=== PATIENT | male | born 1985 | race Caucasian/White ===

== ENCOUNTER 2023-06-04 11:18 | Emergency (ER) | payer OTHER, SELFPAY ==
[2023-06-04] VITALS (14 sets, daily range): BP systolic 138–164; BP diastolic 94–120; PULSE 65–77; RESP 16; TEMP 36.4; O2SAT 95–98; BMI 46.1
--- NOTE | 2023-06-04 11:45 | ED.GENADULT ---
HPI - General Adult General Time Seen by Provider: 11:45 Date Seen: 06/04/23 Chief complaint: Arrhythmia/Palpitations Stated complaint: From echo Time Seen by Provider: 06/04/23 11:39 History of Present Illness HPI narrative: This is a pleasant 38-year-old male with a history of hypertension (on metoprolol 50 mg daily) insomnia) and recent palpitations who was sent here to the ER today from the outpatient ECHO suite. He apparently had seen his primary care provider, Dr. Etienne on May 10 for a blood pressure check and also mentioned that his smart watch was indicating he was having some rapid heart rates. Up to the 150s. He was referred for outpatient echo as part of that workup. He notes that throughout the month of May he has had occasional palpitations. It sounds like almost every day he gets occasional skipped beats. There have been several days where he has had more irregular heartbeats and heart rates up to the 150s. He requires them on his Apple watch. He has heart rates above 100 on 05/05, 05/19, 05/22, 05/23, and again this morning. Some of these rhythm strips due to seem to be consistent with AFib. Others have a lot of artifact. At least 1 of them appears to be sinus with artifact. Other than having the palpitations. No other symptoms. No chest pain. No fainting. No dizziness. No shortness of breath. He does not have any known history of heart valve disease. No history of coronary artery disease. No history of stroke. No history of CHF. No history of diabetes. He does have hypertension. He had been on metoprolol over the long-term. This month he has increased the dose from 50 mg up to 100 mg. No tobacco or alcohol consumption. No other stimulants or weight loss drugs. He endorses longstanding trouble with insomnia. He does not think he still snores. He has never been diagnosed with sleep apnea but actually has a sleep study scheduled for 1-2 weeks from now. When he came in for the echo today the echocardiography for noted that his heart rhythm appeared very rapid up to the 150s and irregular. We do not have a tracing from the echo clinic today but it sounds like he may have been in a tachyarrhythmia, (possibly AFib? ). He is otherwise feeling fine. The instructional technology coordinator made a phone call to [facility]. That business reporting developer recommended that they transfer the patient here to the ER at [facility] for more rapid evaluation and control of his heart rate Related Data Home Medications Medication Instructions Recorded Confirmed aspirin 81 mg tablet,delayed 81 mg PO QDAY 05/10/23 06/04/23 release (Adult Aspirin Regimen) Previous Rx's Medication Instructions Recorded metoprolol succinate 50 mg 75 mg (1.5 x 50 mg) PO QDAY #135 05/10/23 tablet,extended release 24 hr tabs trazodone 50 mg tablet 50 mg PO QHS PRN insomnia #90 tabs 05/10/23 diltiazem HCl 120 mg 120 mg PO DAILY #30 caps 06/04/23 capsule,extended release 24 hr (Cardizem CD) Allergies Allergy/AdvReac Type Severity Reaction Status Date / Time No Known Drug Allergies Allergy Verified 05/10/23 12:50 PFSH PFSH Social History Smoking Status: Current some day smoker What tobacco products do you use: cigars How often do you have a drink containing alcohol: 2-4 times a month AUDIT-C Alcohol total score: 2 Non-prescribed substance use: other Non-prescribed substance use details: gummies occas, last 2 weeks ago Exam Narrative: Exam Narrative: Constitutional: Appears well-developed and well-nourished. Alert. Conversant. Detailed historian. Non toxic. HENT: Head: Atraumatic. Nose: Nose normal. Mouth/Throat: Oral mucosa is clear and moist. no trismus. Pharynx normal. Tonsils symmetric. No tonsillar enlargement, erythema, or exudate. Eyes: Conjunctivae normal. EOM normal. Pupils equal, round, and reactive to light. No scleral icterus. Neck: Normal range of motion. Neck supple. No tracheal deviation present. No JVD Cardiovascular: Normal rate, regular rhythm. Occasional extra beats on the monitor that appeared to be PACs. He does have sinus on the monitor. No gallop. No friction rub. No murmur heard. Symmetric radial and PT artery pulses Pulmonary/Chest: Effort normal. No stridor. No respiratory distress. No wheezes. No rales. No rhonchi . No tenderness. Abdominal: Soft. Bowel sounds normal. No distension. No mass. No tenderness. No rebound. No guarding. Musculoskeletal: RUE: Normal range of motion. No tenderness. No deformity LUE: Normal range of motion. No tenderness. No deformity RLE: Normal range of motion. No edema. No tenderness. No deformity LLE: Normal range of motion. No edema. No tenderness. No deformity Neurological: Alert and oriented to person, place, and time. Normal strength. CN II-VII intact. No sensory deficit. GCS eye subscore is 4. GCS verbal subscore is 5. GCS motor subscore is 6. Normal coordination Skin: Skin is warm and dry. No rash noted. No pallor. Normal capillary refill. Psychiatric: Normal mood. Normal affect. Const: Vital Signs, click to edit/add: Vital Signs - 24 hr 06/04/23 11:29 06/04/23 12:00 06/04/23 12:47 Temperature 97.5 F L Pulse Rate 73 Pulse Rate [Left P ulse Oximeter] 77 Respiratory Rate 16 Blood Pressure Blood Pressure [Ri ght Upper Arm] 164/120 H 156/108 H Pulse Oximetry 98 95 Oxygen Delivery Me thod Room Air 06/04/23 13:00 06/04/23 13:02 06/04/23 13:03 Temperature Pulse Rate 70 67 74 Pulse Rate [Left P ulse Oximeter] Respiratory Rate Blood Pressure 147/95 H Blood Pressure [Ri ght Upper Arm] Pulse Oximetry 95 97 97 Oxygen Delivery Me thod 06/04/23 13:30 06/04/23 13:32 06/04/23 13:33 Temperature Pulse Rate 68 71 72 Pulse Rate [Left P ulse Oximeter] Respiratory Rate Blood Pressure 150/101 H Blood Pressure [Ri ght Upper Arm] Pulse Oximetry 98 96 97 [facility] 06/04/23 14:00 06/04/23 14:02 06/04/23 14:30 Temperature Pulse Rate 74 67 72 Pulse Rate [Left P ulse Oximeter] Respiratory Rate Blood Pressure 138/94 H Blood Pressure [Ri ght Upper Arm] Pulse Oximetry 97 97 96 Oxygen Delivery Me thod 06/04/23 14:31 06/04/23 14:32 Temperature Pulse Rate 65 70 Pulse Rate [Left P ulse Oximeter] Respiratory Rate Blood Pressure 146/108 H Blood Pressure [Ri ght Upper Arm] Pulse Oximetry 97 97 Oxygen Delivery Me od Course Vital Signs Vital signs: Initial Vital Signs Temperature 97.5 F L 06/04/23 11:29 Temperature Source Temporal Artery Scan 06/04/23 11:29 Pulse Rate 77 06/04/23 11:29 Pulse Rhythm Regular 06/04/23 11:29 Respiratory Rate 16 06/04/23 11:29 Blood Pressure 164/120 H 06/04/23 11:29 Blood Pressure Mean 134 H 06/04/23 11:29 Blood Pressure Position Supine 06/04/23 11:29 Pulse Oximetry 98 06/04/23 11:29 Oxygen Delivery Method Room Air 06/04/23 11:29 Vital Signs Temperature 97.5 F L 06/04/23 11:29 Pulse Rate 77 06/04/23 11:29 Respiratory Rate 16 06/04/23 11:29 Blood Pressure 164/120 H 06/04/23 11:29 Pulse Oximetry 98 06/04/23 11:29 Oxygen Delivery Method Room Air 06/04/23 11:29 Temperature 97.5 F L 06/04/23 11:29 Pulse Rate 70 06/04/23 14:32 Respiratory Rate 16 06/04/23 11:29 Blood Pressure 146/108 H 06/04/23 14:31 Pulse Oximetry 97 06/04/23 14:32 Oxygen Delivery Method Room Air 06/04/23 13:33 Medical Decision Making MDM Narrative Medical decision making narrative: This patent presents for evaluation of palpitations, and elevated heart rate. He has had episodes of palpitations off and on for years but has had several distinct episodes this month that appeared to be atrial fibrillation on his Apple watch. He was in the hospital today for a planned outpatient echo as part of the workup through his primary care provider. He was found to have signs of AFib with RVR on the echo so was referred here to the ER. By the time he arrived here he had already spontaneously converted back to normal sinus rhythm. Monitored here in the ER for couple of hours with noting a couple of occasional PACs but no recurrent runs of atrial fibrillation or other arrhythmia. I doubt acute coronary syndrome, thyroid issues, PE, dissection, drug ingestion, acute electrolyte imbalance, etc. Labs and CXR look ok. Repeat EKG confirms sinus.. Asymptomatic after spontaneous conversion to sinus now and would not hospitalize. Discussed with patient and the patient is in agreement. Discuss with [facility]. He is already on metoprolol (long-term for blood pressure, recently increasing doses because of the AF). Discussed with Cardiology. They recommend reducing dose of metoprolol down to 50 mg per day. They would also recommend addition of Cardizem CD 1 120 mg daily with a plan for dual treatment with beta-rosa maria and calcium channel rosa maria. Should see cardiology for consideration of oral rhythm control vs watchful waiting. Follow cardiology clinic will call him on Wednesday to arrange an outpatient follow-up. If he did not receive a call from them by Wednesday he will call [facility] to arrange is on follow-up. Chads Vasc score is 1. Discussed with cardiology. That would be moderate low risk. Stroke prophylaxis could be considered but is not mandatory. Discussed with the patient. 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 This when we feel the risk of bleeding from injury would outweigh the benefit a stroke prophylaxis will hold off on anticoagulation for now. Precautions for return to the ER reviewed. Lab Data Labs: Lab Results 06/04/23 Range/Units 11:58 WBC 8.28 (4.50-11.00) K/uL RBC 5.27 (4.30-5.90) m/uL Hgb 15.7 (13.5-17.5) gm/dL Hct 46.8 (37.0-53.0) % MCV 89 (80-100) fL MCH 30 (26-34) pg MCHC 34 (32-36) gm/dL RDW Coeff of Shady 12.5 (11.5-15.5) % Plt Count 246 (140-440) K/uL Neut % (Auto) 67.8 (42.0-72.0) % Lymph % (Auto) 24.0 (20-44) % Ross % (Auto) 7.2 (0.0-11.0) % Eos % (Auto) 0.6 (0.0-7.0) % Baso % (Auto) 0.2 (0.0-3.0) % Neut # (Auto) 5.60 (1.7-7.0) K/uL Lymph # (Auto) 1.99 (0.90-2.90) K/uL Ross # (Auto) 0.60 (0.00-0.90) K/UL Eos # (Auto) 0.05 (0.00-0.50) K/uL Baso # (Auto) 0.02 (0.00-0.30) K/uL Abs Immat Gran (auto) 0.02 (0.00-0.30) K/uL Imm/Tot Granulo (auto) 0.2 % Sodium 140 (135-149) mmol/L Potassium 4.5 (3.6-5.1) mmol/L Chloride 105 (96-114) mmol/L Carbon Dioxide 26 (20-32) mmol/L Anion Gap 9 (7-15) mEq/L BUN 13 (5-24) mg/dL Creatinine 0.8 (0.5-1.5) mg/dL Estimated Creat Clear 137.42 Estimated GFR 116 ml/min Glucose 100 (60-115) mg/dL Calcium 9.4 (8.4-10.6) mg/dL Troponin I < 0.01 L (0.01-0.04) ng/mL TSH 1.820 (0.270-4.200) uIU/mL ECG Data Attestation: I personally reviewed and interpreted this ECG as follows: Interpretation: Normal sinus rhythm rate 80 TN 162 QRS axis normal axis. No pathologic Q-waves. ST segment/T wave: No acute ST segment elevation or depression. No U-waves. QTc: 403. He had a previous EKG from 02/16/2023 that also showed normal sinus rhythm. EKG 2. Normal sinus rhythm rate 75. Marked sinus arrhythmia TN 162 QRS axis normal axis. No pathologic Q-waves ST segment/T wave: No acute ischemia. No ST segment elevation. QTc: For O2 Discharge Plan Discharge Clinical Impression: AF (paroxysmal atrial fibrillation) Patient Disposition: Home, Self-Care Condition: Stable Instructions: A-fib (Atrial Fibrillation) (ED) Additional Instructions: As we discussed, return to the ER right away if you have more episodes of AFib were especially heart rate higher than 150 that lasts more than 1 hour. Also come back right away if you develop chest pain, trouble breathing, fainting spells, or if you have any concerns. The business reporting developer recommends that you reduce your dose of metoprolol down to 50 mg per day and add a 2nd medication (Cardizem) to keep your heart under control. You should receive a phone call from [facility] by Wednesday to arrange an outpatient appointment. If you do not receive a call from them, call them at [phone] to schedule an appointment with the business reporting developer to recheck for her atrial fibrillation. Prescriptions: New diltiazem HCl [Cardizem CD] 120 mg capsule,extended release 24hr 120 mg PO DAILY Qty: 30 2RF No Action aspirin [Adult Aspirin Regimen] 81 mg tablet,delayed release (DR/EC) 81 mg PO QDAY trazodone 50 mg tablet 50 mg PO QHS PRN (Reason: insomnia) Qty: 90 4RF metoprolol succinate 50 mg tablet extended release 24 hr 75 mg PO QDAY Qty: 135 1RF Follow Up/Referrals: Rafal Conde MD [Primary Care Provider] - Stand Alone Forms: [employer] Info Instructions
[2023-06-04 12:08] LABS: Basophils Absolute Auto 0.02 K/uL (0.00-0.30); Basophils Percent Auto 0.2 % (0.0-3.0); Eosinophils Absolute Auto 0.05 K/uL (0.00-0.50); Eosinophils Percent Auto 0.6 % (0.0-7.0); Hematocrit 46.8 % (37.0-53.0); Hemoglobin* 15.7 gm/dL (13.5-17.5); Immature Granulocytes Abs Auto 0.02 K/uL (0.00-0.30); Immature Granulocytes Pct Auto 0.2 %; Lymphocytes Absolute Auto 1.99 K/uL (0.90-2.90); Mean Corpuscular HGB Conc 34 gm/dL (32-36); Mean Corpuscular Hemoglobin 30 pg (26-34); Mean Corpuscular Volume 89 fL (80-100); Monocytes Percent Auto 7.2 % (0.0-11.0); Neutrophils Percent Auto 67.8 % (42.0-72.0); Platelet Count* 246 K/uL (140-440); RDW Coefficient of Variation % 12.5 % (11.5-15.5); Red Blood Count 5.27 m/uL (4.30-5.90); White Blood Count* 8.28 K/uL (4.50-11.00)
[2023-06-04 12:11] LABS: Slide Review Reflex No
[2023-06-04 12:30] LABS: Chloride* 105 mmol/L (96-114); Potassium* 4.5 mmol/L (3.6-5.1); Sodium* 140 mmol/L (135-149)
[2023-06-04 12:33] LABS: Anion Gap 9 mEq/L (7-15); Blood Urea Nitrogen* 13 mg/dL (5-24); Calcium* 9.4 mg/dL (8.4-10.6); Carbon Dioxide* 26 mmol/L (20-32); Creatinine* 0.8 mg/dL (0.5-1.5); Est. Creatinine Clearance* 137.42; Estimated Glomerular Filt Rate 116 ml/min; Glucose* 100 mg/dL (60-115)
[2023-06-04 12:45] LABS: Troponin I* < 0.01 ng/mL (0.01-0.04)
== END 2023-06-04 14:48 | disposition home or self-care (01) ==
PROVIDERS: Emergency Provider Emergency Medicine; PCP Family Medicine
DX: I48.0 Paroxysmal atrial fibrillation (principal)
CPT/HCPCS: 36415; 80048; 84443; 84484; 85025; 93005; 93306; 99283; 99284; 99285

== ENCOUNTER 2023-06-06 14:02 | Emergency (ER) | payer OTHER, SELFPAY ==
[2023-06-06 14:05] VITALS: BP 132/92; PULSE 75; RESP 16; TEMP 36.4; O2SAT 97; BMI 46.1
--- NOTE | 2023-06-06 14:46 | ED_ITS ---
HPI - Arrhythmia/Palpitations General Time Seen by Provider: 14:12 Date Seen: 06/06/23 Chief Complaint: Arrhythmia/Palpitations Stated Complaint: Heart has been going in and out of A Fib Time Seen by Provider: 06/06/23 14:12 Source: patient, RN notes reviewed and old records reviewed Mode of arrival: ambulatory Limitations: no limitations History of Present Illness HPI narrative: This patient is a 38-year-old gentleman coming in with about 1 hour episode prior to arrival of rapid fast heart rate. He does show me some of the EKG tracing that he got off his I watch. If it does appear to be consistent with an irregularly irregular rhythm, a rate anywhere from 120 to 150s that is captured. He does have occasional PVC, couple couplets and there is one 4 beat of VT. He states he has a significant sense of anxiety with this, even yesterday when he had really no symptoms of the palpitations or fast heart rate, felt the fight or flight type sensation. He was in the ER on June 04, had come over from outpatient echo in atrial fibrillation with RVR but converted on his own just prior to being seen. Did check in his echo is not back yet for the formal reading. Did review with him that I would not be surprised if Cardiology would want an echo when he is in sinus rhythm, reviewed the limitations of the echo when someone is in AFib with RVR. He did start 50 mg of metoprolol with 120 mg of Cardizem on Wednesday as requested by Cardiology, Cardiology was consulted via phone. He is not feeling any shortness of breath no chest pain no symptoms except the fast heart rate in the anxiety when this happens. He is scheduled to see Cardiology this next week, is scheduled to get a sleep study. He does not believe he snores but understands the rationale for getting this checked in is more than willing to do it. He was hoping to be able to get an EKG to capture this. He recently were 24 hour Holter monitor which reportedly did not show any evidence of arrhythmia per his report. He is wondering if there is something that he could potentially take for anxiety and tell he can see Cardiology. He admits he just wants this to go away. complaint: atrial fibrillation Duration: intermittent Related Data Home Medications Medication Instructions Recorded Confirmed aspirin 81 mg tablet,delayed 81 mg PO QDAY 05/10/23 06/06/23 release (Adult Aspirin Regimen) Previous Rx's Medication Instructions Recorded metoprolol succinate 50 mg 75 mg (1.5 x 50 mg) PO QDAY #135 05/10/23 tablet,extended release 24 hr tabs trazodone 50 mg tablet 50 mg PO QHS PRN insomnia #90 tabs 05/10/23 diltiazem HCl 120 mg 120 mg PO DAILY #30 caps 06/04/23 capsule,extended release 24 hr (Cardizem CD) hydroxyzine HCl 50 mg tablet 50 mg PO TID PRN #15 tabs 06/06/23 lorazepam 0.5 mg tablet (Ativan) 0.5 mg PO TID PRN #10 tabs 06/06/23 Allergies Allergy/AdvReac Type Severity Reaction Status Date / Time No Known Drug Allergies Allergy Verified 06/06/23 14:09 Review of Systems Status of ROS: Reports: 6 or more systems reviewed and unremarkable except as noted in History and below PFSH [facility] Social History Smoking Status: Current some day smoker What tobacco products do you use: cigars How often do you have a drink containing alcohol: 2-4 times a month AUDIT-C Alcohol total score: 2 Non-prescribed substance use: denies use and other Non-prescribed substance use details: gummies occas, last 2 weeks ago Exam Const: Vital Signs, click to edit/add: Vital Signs - 24 hr 06/06/23 14:05 Temperature 97.6 F Pulse Rate [Left P ulse Oximeter] 75 Respiratory Rate 16 Blood Pressure [Ri ght Upper Arm] 132/92 H Pulse Oximetry 97 Oxygen Delivery Me thod Room Air Very pleasant 38-year-old gentleman whom is alert interactive no apparent distress. He is overweight. Lungs are clear with good air entry, no wheezing or crackles. CV regular rate and rhythm no murmur. On investigator operator and no arrhythmia noted. Documenting provider has reviewed patient's vital signs: yes Course Course Hospital Course: Spent about 30 minutes talking to this patient, reviewing his history. We did talk about the importance of following through with the sleep study, sleep apnea can be very significant for patients with arrhythmias like this. He was in sinus rhythm the whole time I was there with him, did not go into atrial fibri llation. Did look to see if his echo report was in but it is not. Discussed anxiety, I a very infrequently give out medicines for this but he may actually be someone I would consider this for. We discussed both Vistaril an Ativan. I would tend to favor him using Vistaril 1st, will give him a small reserve of Ativan if he is feeling overly anxious. We did discuss the risk benefit profile of Ativan. He understands it is an addictive drugs, can be considered mood altering and certainly should not drive or operate machinery while on this. He has had thyroid testing recently done, do not feel clinically that he has any evidence of any congestive heart failure, do not feel that further labs are done. He has not had any chest pain with this at any time, has had normal prior troponins done. Vital Signs Vital signs: Initial Vital Signs Temperature 97.6 F 06/06/23 14:05 Temperature Source Temporal Artery Scan 06/06/23 14:05 Pulse Rate 75 06/06/23 14:05 Respiratory Rate 16 06/06/23 14:05 Blood Pressure 132/92 H 06/06/23 14:05 Blood Pressure Mean 105 06/06/23 14:05 Blood Pressure Position Sitting 06/06/23 14:05 Pulse Oximetry 97 06/06/23 14:05 Oxygen Delivery Method Room Air 06/06/23 14:05 Vital Signs Temperature 97.6 F 06/06/23 14:05 Pulse Rate 75 06/06/23 14:05 Respiratory Rate 16 06/06/23 14:05 Blood Pressure 132/92 H 06/06/23 14:05 Pulse Oximetry 97 06/06/23 14:05 Oxygen Delivery Method Room Air 06/06/23 14:05 Temperature 97.6 F 06/06/23 14:05 Pulse Rate 75 06/06/23 14:05 Respiratory Rate 16 06/06/23 14:05 Blood Pressure 132/92 H 06/06/23 14:05 Pulse Oximetry 97 06/06/23 14:05 Oxygen Delivery Method Room Air 06/06/23 14:05 MDM - Arrhythmia/Palpitations ECG Data Attestation: I personally reviewed and interpreted this ECG as follows: (Sinus rhythm with frequent PACs. Rate about 75. QT corrected 411 milliseconds.) ECG interpretation date: 06/06/23 ECG interpretation time: 14:30 Critical Care Time Critical Care Time Critical Care Time: No Discharge Plan Discharge Clinical Impression: Paroxysmal atrial fibrillation Patient Disposition: Home, Self-Care Condition: Stable Instructions: A-fib (Atrial Fibrillation) (ED) Additional Instructions: Stay on the Cardizem and metoprolol that you were advised to take on WednesdayJune 04. Need to keep the cardiology appointment that you have this next week as well as complete the sleep study. For anxiety associated with this, am giving prescriptions for Vistaril and Ativan. Use as prescribed, would recommend trying Vistaril 1st an Ativan for more severe anxiety. No that Ativan is potentially addictive, considered mood altering and would not recommend drivi ng or operating machinery while on this. Activity Level: Activity as Tolerated Prescriptions: New hydroxyzine HCl 50 mg tablet 50 mg PO TID PRNQty: 15 0RF lorazepam [Ativan] 0.5 mg tablet 0.5 mg PO TID PRNQty: 10 0RF No Action aspirin [Adult Aspirin Regimen] 81 mg tablet,delayed release (DR/EC) 81 mg PO QDAY diltiazem HCl [Cardizem CD] 120 mg capsule,extended release 24hr 120 mg PO DAILY Qty: 30 2RF trazodone 50 mg tablet 50 mg PO QHS PRN (Reason: insomnia) Qty: 90 4RF metoprolol succinate 50 mg tablet extended release 24 hr 75 mg PO QDAY Qty: 135 1RF Follow Up/Referrals: Rafal Conde MD [Primary Care Provider] - Stand Alone Forms: [employer] Info Instructions
== END 2023-06-06 15:30 | disposition home or self-care (01) ==
PROVIDERS: Emergency Provider Family Medicine; PCP Family Medicine
DX: I48.0 Paroxysmal atrial fibrillation (principal)
CPT/HCPCS: 93005; 94761; 99283; 99284

== ENCOUNTER 2023-08-10 17:31 | Day surgery (SDC) | payer OTHER, SELFPAY ==
[2023-08-10] VITALS (19 sets, daily range): BP systolic 139–142; BP diastolic 89–117; PULSE 86–106; RESP 16–22; TEMP 37.4–38.2; O2SAT 94–98; BMI 46.1
--- NOTE | 2023-08-10 18:07 | CRLHL7_ITS ---
For Patients: As a result of the Century Cures Act, medical imaging exams and procedure reports are released immediately into your electronic medical record. You may view this report before your referring provider. If you have questions, please contact your health care provider. INDICATION: Fever common gallstones. TECHNIQUE: Ultrasound abdomen limited. Sonographic images of the right upper quadrant were obtained using pradhan-scale and color Doppler images. COMPARISON: Same day CT abdomen pelvis. FINDINGS: Liver: Normal in size. Increased echogenicity of the hepatic echotexture compatible with diffuse hepatic steatosis. No suspicious masses. No intrahepatic biliary dilatation. Portal vein is patent with blood flow toward the liver. Gallbladder: Cholelithiasis. Gallbladder wall measures 5 mm, increased in wall thickness. No pericholecystic fluid. No sonographic Garcia`s sign. Common bile duct: 6 mm. Pancreas: Limited visualization. Right kidney: Normal in size. Normal echotexture and cortex. No suspicious masses, stones, or hydronephrosis. IMPRESSION: Cholelithiasis and mild thickening of the gallbladder wall, indeterminate for acute cholecystitis. Dictated by Rahul Wiley MD @ 08/10/2023 9:43:36 PM (Electronically Signed)
--- NOTE | 2023-08-10 18:30 | ED_ITS ---
HPI - General Adult General Date Seen: 08/10/23 <Jolene Guzamn MD - Last Filed: 08/12/23 12:38> Chief complaint: Fever <Jolene Guzman MD - Last Filed: 08/12/23 12:38> Stated complaint: Gallblader issues-high WBC, bili in urine, fever <Jolene Guzman MD - Last Filed: 08/12/23 12:38> Time Seen by Provider: 08/10/23 17:34 <Jolene Guzman MD - Last Filed: 08/12/23 12:38> Source: patient <Jolene Guzman MD - Last Filed: 08/12/23 12:38> Mode of arrival: ambulatory <Jolene Guzman MD - Last Filed: 08/12/23 12:38> Limitations: no limitations <Jolene Guzman MD - Last Filed: 08/12/23 12:38> History of Present Illness HPI narrative: Patient is a 38-year-old male who is sent here from urgent care for evaluation of fever and abdominal pain. He tells me that he has has a long history of intermittent upper abdominal pain which he is always presumed was related to his gallbladder, but it has always gone away after a couple of hours and so he has never pursued any kind of evaluation for it. He says he ate barbecue on Wednesday and then at 4:00 a.m. on Wednesday woke up with pretty severe upper abdominal pain, typical for him. However, this time it did not go way and he had pain steadily through noon on Wednesday. Since then, the pain has completely resolved, but he has developed a fever up to 101.5 at home. He has not noted any yellowing of his skin, has not had any vomiting although he has been a little bit nauseated. No urinary symptoms, no upper respiratory symptoms. No prior abdominal surgeries. He does not smoke, drinks about a drink a week, has a history of AFib but is not anticoagulated, denies other significant medical history. He is overweight and was scheduled to have a sleep study recently that had to be rescheduled because of availability of the staff performing the test. In urgent care he was found have white blood cell count [id number]. He had an EKG which showed sinus tachycardia with a heart rate of 111. Blood pressure was reportedly good. Had a UA which showed bilirubin, but did not have LFTs. <Jolene Guzman MD - Last Filed: 08/12/23 12:38> Related Data Home medications: Home Medications Medication Instructions Recorded Confirmed aspirin 81 mg tablet,delayed 81 mg PO QDAY 05/10/23 08/11/23 release (Adult Aspirin Regimen) Previous Rx's Medication Instructions Recorded metoprolol succinate 50 mg 75 mg (1.5 x 50 mg) PO QDAY #135 05/10/23 tablet,extended release 24 hr tabs diltiazem HCl 120 mg 120 mg PO DAILY #30 caps 06/04/23 capsule,extended release 24 hr (Cardizem CD) amoxicillin 875 mg-potassium 1 tab PO BID #10 tabs 08/12/23 clavulanate 125 mg tablet hydrocodone 5 mg-acetaminophen 325 1 tab PO Q6H PRN pain #25 tabs 08/12/23 mg tablet <Jolene Guzman MD - Last Filed: 08/12/23 12:38> Allergies/adverse reactions: Allergies Allergy/AdvReac Type Severity Reaction Status Date / Time No Known Drug Allergies Allergy Verified 08/10/23 15:51 <Jolene Guzman MD - Last Filed: 08/12/23 12:38> Review of Systems Status of ROS: Reports: 10 or more systems reviewed and unremarkable except as noted in History and below <Jolene Guzman MD - Last Filed: 08/12/23 12:38> [facility] Medical History: Medical History (Updated 08/10/23 @ 23:10 by Ricky Ramesh MD) Insomnia ?G47.00 - Insomnia, unspecified (ICD-10) Paroxysmal atrial fibrillation with rapid ventricular response ?I48.0 - Paroxysmal atrial fibrillation (ICD-10) Family history of thyroid disease ?Z83.49 - Family history of other endocrine, nutritional and metabolic diseases (ICD-10) Family history of ASCVD ?Z82.49 - Family history of ischemic heart disease and other diseases of the circulatory system (ICD-10) Obesity ?E66.9 - Obesity, unspecified (ICD-10) Palpitation ?R00.2 - Palpitations (ICD-10) Hypertension ?I10 - Essential (primary) hypertension (ICD-10) <Jolene Guzman MD - Last Filed: 08/12/23 12:38> Surgical History: Surgical History (Updated 08/12/23 @ 07:02 by Valeriano Mendes MD) S/P laparoscopic cholecystectomy ?Z90.49 - Acquired absence of other specified parts of digestive tract (ICD- 10) <Jolene Guzman MD - Last Filed: 08/12/23 12:38> Social History: Social History What is your current living situation?: I presently have a place to live Problems where you live: no known problems Problems where you live details: n/a In the past 12 months, utilities in danger of being shut off: no In past 12 months, lack of transportation kept you from medical appts, meetings, work, or getting things needed for daily living: no In the past 12 mos, have been you worried that your food would run out before you had money to buy more?: never true In the past 12 mos, the food you bought just didn't last and you didn't have money to buy more?: never true Highest level of school completed/degree received: some college, no degree Smoking Status: Current some day smoker What tobacco products do you use: cigars How often do you have a drink containing alcohol: 2-4 times a month AUDIT-C Alcohol total score: 2 Non-prescribed substance use: other Non-prescribed substance use details: THC gummies Caffeine: Yes How often does anyone, including family, friends and others, physically hurt you : never How often does anyone, including family, friends and others, insult or talk down to you: never How often does anyone, including family, friends and others, threaten you with harm: never How often does anyone, including family, friends and others, scream or curse at you: never service: No <Jolene Guzman MD - Last Filed: 08/12/23 12:38> Exam Narrative: Exam Narrative: Vital signs as noted above. In general, an alert, nontoxic male. Looks comfortable. Overweight. Head: Normocephalic, atraumatic. Eyes: Pupils are equal reactive. Extraocular movements are full. Conjunctivae are normal. No icterus. ENT: Mucous membranes are moist. Neck: Supple without lymphadenopathy. Heart: Regular rate and rhythm. No murmur or rub. Lungs: Clear bilaterally. No increased work of breathing, crackles or wheezes. No CVA tenderness. Abdomen: Soft and entirely nontender. Specifically no tenderness at McBurney's point, negative Garcia's and no right upper quadrant tenderness. Exam perhaps limited somewhat by body habitus. Extremities: Well perfused. No edema. No calf tenderness. Pulses intact. Neurologic: Patient is alert and oriented to person and place. Speech is fluent. Face is symmetric. Moves all extremities equally. Affect: Normal. Skin: Warm and dry. Well perfused. <Jolene Guzman MD - Last Filed: 08/12/23 12:38> Const: Vital Signs, click to edit/add: Vital Signs - 24 hr 08/10/23 17:43 08/10/23 17:59 08/10/23 18:00 Temperature 100.7 F H Pulse Rate 86 88 Pulse Rate [Pulse Oximeter] 90 Respiratory Rate 22 Blood Pressure [Le ft Upper Arm] 139/117 H Pulse Oximetry 95 95 94 Oxygen Delivery Me thod Room Air 08/10/23 18:15 08/10/23 18:30 08/10/23 18:45 Temperature Pulse Rate 105 H 106 H 98 Pulse Rate [Pulse Oximeter] Respiratory Rate Blood Pressure [Le ft Upper Arm] Pulse Oximetry 95 95 96 Oxygen Delivery Me thod 08/10/23 19:00 08/10/23 19:15 08/10/23 19:30 Temperature Pulse Rate 96 92 90 Pulse Rate [Pulse Oximeter] Respiratory Rate Blood Pressure [Le ft Upper Arm] Pulse Oximetry 97 98 98 Oxygen Delivery Me thod 08/10/23 19:36 08/10/23 19:45 08/10/23 20:00 Temperature 99.6 F Pulse Rate 91 93 Pulse Rate [Pulse Oximeter] Respiratory Rate Blood Pressure [Le ft Upper Arm] Pulse Oximetry 98 98 Oxygen Delivery Me thod 08/10/23 20:15 08/10/23 20:30 08/10/23 20:45 Temperature Pulse Rate 97 94 104 H Pulse Rate [Pulse Oximeter] Respiratory Rate Blood Pressure [Le ft Upper Arm] Pulse Oximetry 97 97 97 Oxygen Delivery Me thod 08/10/23 21:47 08/10/23 21:51 Temperature 100.6 F H 100.6 F H Pulse Rate Pulse Rate [Pulse Oximeter] Respiratory Rate Blood Pressure [Le ft Upper Arm] Pulse Oximetry Oxygen Delivery Me thod <Jolene Guzman MD - Last Filed: 08/12/23 12:38> Vital Signs, click to edit/add: Vital Signs - 24 hr 08/10/23 17:43 08/10/23 17:59 08/10/23 18:00 Temperature 100.7 F H Pulse Rate 86 88 Pulse Rate [Pulse Oximeter] 90 Respiratory Rate 22 Blood Pressure [Le ft Upper Arm] 139/117 H Pulse Oximetry 95 95 94 Oxygen Delivery Me thod Room Air 08/10/23 18:15 08/10/23 18:30 08/10/23 18:45 Temperature Pulse Rate 105 H 106 H 98 Pulse Rate [Pulse Oximeter] Respiratory Rate Blood Pressure [Le ft Upper Arm] Pulse Oximetry 95 95 96 Oxygen Delivery Me thod 08/10/23 19:00 08/10/23 19:15 08/10/23 19:30 Temperature Pulse Rate 96 92 90 Pulse Rate [Pulse Oximeter] Respiratory Rate Blood Pressure [Le ft Upper Arm] Pulse Oximetry 97 98 98 Oxygen Delivery Me thod 08/10/23 19:36 08/10/23 19:45 08/10/23 20:00 Temperature 99.6 F Pulse Rate 91 93 Pulse Rate [Pulse Oximeter] Respiratory Rate Blood Pressure [Le ft Upper Arm] Pulse Oximetry 98 98 Oxygen Delivery Me thod 08/10/23 20:15 08/10/23 20:30 08/10/23 20:45 Temperature Pulse Rate 97 94 104 H Pulse Rate [Pulse Oximeter] Respiratory Rate Blood Pressure [Le ft Upper Arm] Pulse Oximetry 97 97 97 Oxygen Delivery Me thod 08/10/23 21:47 08/10/23 21:51 Temperature 100.6 F H 100.6 F H Pulse Rate Pulse Rate [Pulse Oximeter] Respiratory Rate Blood Pressure [Le ft Upper Arm] Pulse Oximetry Oxygen Delivery Me thod <Saul Contreras MD - Last Filed: 08/10/23 22:00> Documenting provider has reviewed patient's vital signs: yes <Jolene Guzman MD - Last Filed: 08/12/23 12:38> Course Course ED Course: An IV is placed, labs drawn and records were reviewed from urgent care. I did look with the bedside ultrasound, his gallbladder looks distended and he has multiple radiopaque stones. Formal right upper quadrant ultrasound is ordered as well. Differential diagnosis includes cholecystitis although it is interesting that he does not have any pain now. He does not have jaundice, cholangitis I think is unlikely. In the absence of abdominal tenderness I think appendicitis is also unlikely, but will see how the ultrasound looks and add ad ditional imaging if we need to look for other surgical causes for recent abdominal pain and now fever. White blood cell count is markedly elevated, I think this is unlikely to be viral such as COVID, flu etcetera. Labs are notable for a normal metabolic panel, glucose of 97. LFTs are entirely within normal limits, total bilirubin is 1. His CRP is markedly elevated at 20, lipase is 33, COVID RSV and influenza are negative. He had a formal ultrasound which confirms the presence of gallstones, wall is measured at 5 mm, common bile duct normal. This is preliminary read, final read is pending. I talked with Dr. Bartholomew who is on-call for General surgery. Overall his clinical picture is suggestive of cholecystitis, however his presentation is unusual in that his abdominal pain has resolved and fever and infection/inflammation markers are markedly abnormal. Plan at this time is to get a CT of the abdomen just to rule out any other possible problems. Assuming this does not show any other acute findings, plan would be admission to the hospital here for IV antibiotics and surgical consult tomorrow morning. Patient did request Tylenol for headache and that is being given as well as Zosyn 3.375 g IV. <Jolene Guzman MD - Last Filed: 08/12/23 12:38> Vital Signs Vital signs: Initial Vital Signs Temperature 100.7 F H 08/10/23 17:43 Temperature Source Temporal Artery Scan 08/10/23 17:43 Pulse Rate 90 08/10/23 17:43 Pulse Rhythm Regular 08/10/23 17:43 Respiratory Rate 22 08/10/23 17:43 Blood Pressure 139/117 H 08/10/23 17:43 Blood Pressure Mean 124 H 08/10/23 17:43 Blood Pressure Position Supine 08/10/23 17:43 Pulse Oximetry 95 08/10/23 17:43 Oxygen Delivery Method Room Air 08/10/23 17:43 Vital Signs Temperature 100.7 F H 08/10/23 17:43 Pulse Rate 90 08/10/23 17:43 Respiratory Rate 22 08/10/23 17:43 Blood Pressure 139/117 H 08/10/23 17:43 Pulse Oximetry 95 08/10/23 17:43 Oxygen Delivery Method Room Air 08/10/23 17:43 Temperature 98.4 F 08/12/23 08:45 Pulse Rate 88 08/12/23 08:45 Respiratory Rate 16 08/12/23 08:45 Blood Pressure 145/95 H 08/12/23 08:45 Pulse Oximetry 97 08/12/23 08:45 Oxygen Delivery Method Room Air 08/12/23 08:45 Oxygen Flow Rate 0 08/12/23 07:30 <Jolene Guzman MD - Last Filed: 08/12/23 12:38> Initial Vital Signs Temperature 100.7 F H 08/10/23 17:43 Temperature Source Temporal Artery Scan 08/10/23 17:43 Pulse Rate 90 08/10/23 17:43 Pulse Rhythm Regular 08/10/23 17:43 Respiratory Rate 22 08/10/23 17:43 Blood Pressure 139/117 H 08/10/23 17:43 Blood Pressure Mean 124 H 08/10/23 17:43 Blood Pressure Position Supine 08/10/23 17:43 Pulse Oximetry 95 08/10/23 17:43 Oxygen Delivery Method Room Air 08/10/23 17:43 Vital Signs Temperature 100.7 F H 08/10/23 17:43 Pulse Rate 90 08/10/23 17:43 Respiratory Rate 22 08/10/23 17:43 Blood Pressure 139/117 H 08/10/23 17:43 Pulse Oximetry 95 08/10/23 17:43 Oxygen Delivery Method Room Air 08/10/23 17:43 Temperature 98.4 F 08/12/23 08:45 Pulse Rate 88 08/12/23 08:45 Respiratory Rate 16 08/12/23 08:45 Blood Pressure 145/95 H 08/12/23 08:45 Pulse Oximetry 97 08/12/23 08:45 Oxygen Delivery Method Room Air 08/12/23 08:45 Oxygen Flow Rate 0 08/12/23 07:30 <Saul Contreras MD - Last Filed: 08/10/23 22:00> Medications Administered Medications: Discontinued Medications Generic Name Dose Route Start Last Admin Trade Name Zacq PRN Reason Stop Dose Admin Acetaminophen 1,000 mg 08/10/23 20:43 08/10/23 20:53 Acetaminophen 500 Mg Tablet PO 08/10/23 20:44 1,000 mg ONCE ONE Administration Acetaminophen 650 mg 08/11/23 02:55 08/11/23 21:25 Acetaminophen 325 Mg Tablet PO 650 mg Q6H PRN Administration Diltiazem HCl 120 mg 08/11/23 09:00 08/12/23 08:56 Diltiazem 120 Mg Cap.Er.24h PO 120 mg DAILY MARKOS Administration Sodium Chloride 1,000 mls @ 1,000 mls/hr 08/10/23 18:00 08/10/23 19:37 0.9 % Sodium Chloride 1000 Ml IV 08/10/23 18:59 Infused .Q1H MARKOS Infusion Piperacillin Sod/Tazobactam 100 mls @ 100 mls/hr 08/10/23 20:43 08/10/23 21:48 Sod 3.375 gm/ Sodium Chloride IVPB 08/10/23 20:44 Infused ONCE ONE Infusion Piperacillin Sod/Tazobactam 100 mls @ 200 mls/hr 08/11/23 03:00 08/12/23 07:15 Sod 3.375 gm/ Sodium Chloride IVPB Infused Q6H MARKOS Infusion Lactated Ringer's 1,000 mls @ 125 mls/hr 08/11/23 09:35 08/11/23 20:30 Lactated Ringers 1000 Ml IV 0 mls/hr .Q8H MARKOS Infusion Cefazolin Sodium 3 gm/ Sodium 100 mls @ 200 mls/hr 08/11/23 12:58 08/11/23 13:20 Chloride IVPB 08/11/23 12:59 200 mls/hr ONCE ONE Administration Lorazepam 0.25 mg 08/11/23 09:57 08/11/23 12:20 Lorazepam 2 Mg/Ml Inj IVP 08/11/23 09:58 Not Given ONCE ONE Lorazepam 0.25 - 0.5 mg 08/11/23 10:00 08/11/23 16:59 Lorazepam 2 Mg/Ml Inj IVP 08/11/23 11:01 Not Given Q1H MARKOS Metoprolol Succinate 75 mg 08/10/23 23:00 08/12/23 08:56 Metoprolol Succinate (Xl) 50 Mg Tab PO 75 mg DAILY MARKOS Administration Oxycodone HCl 5 mg 08/11/23 21:15 08/11/23 23:46 Oxycodone 5 Mg Tablet PO 5 mg Q4H PRN Administration Sodium Chloride 5 ml 08/11/23 09:00 08/11/23 10:09 Sodium Chloride 0.9 % (Flush) 10 Ml Syringe IVF 5 ml BID MARKOS Administration <Jolene Guzman MD - Last Filed: 08/12/23 12:38> Discontinued Medications Generic Name Dose Route Start Last Admin Trade Name Freq PRN Reason Stop Dose Admin Acetaminophen 1,000 mg 08/10/23 20:43 08/10/23 20:53 Acetaminophen 500 Mg Tablet PO 08/10/23 20:44 1,000 mg ONCE ONE Administration Acetaminophen 650 mg 08/11/23 02:55 08/11/23 21:25 Acetaminophen 325 Mg Tablet PO 650 mg Q6H PRN Administration Diltiazem HCl 120 mg 08/11/23 09:00 08/12/23 08:56 Diltiazem 120 Mg Cap.Er.24h PO 120 mg DAILY MARKOS Administration Sodium Chloride 1,000 mls @ 1,000 mls/hr 08/10/23 18:00 08/10/23 19:37 0.9 % Sodium Chloride 1000 Ml IV 08/10/23 18:59 Infused .Q1H MARKOS Infusion Piperacillin Sod/Tazobactam 100 mls @ 100 mls/hr 08/10/23 20:43 08/10/23 21:48 Sod 3.375 gm/ Sodium Chloride IVPB 08/10/23 20:44 Infused ONCE ONE Infusion Piperacillin Sod/Tazobactam 100 mls @ 200 mls/hr 08/11/23 03:00 08/12/23 07 :15 Sod 3.375 gm/ Sodium Chloride IVPB Infused Q6H MARKOS Infusion Lactated Ringer's 1,000 mls @ 125 mls/hr 08/11/23 09:35 08/11/23 20:30 Lactated Ringers 1000 Ml IV 0 mls/hr .Q8H MARKOS Infusion Cefazolin Sodium 3 gm/ Sodium 100 mls @ 200 mls/hr 08/11/23 12:58 08/11/23 13:20 Chloride IVPB 08/11/23 12:59 200 mls/hr ONCE ONE Administration Lorazepam 0.25 mg 08/11/23 09:57 08/11/23 12:20 Lorazepam 2 Mg/Ml Inj IVP 08/11/23 09:58 Not Given ONCE ONE Lorazepam 0.25 - 0.5 mg 08/11/23 10:00 08/11/23 16:59 Lorazepam 2 Mg/Ml Inj IVP 08/11/23 11:01 Not Given Q1H MARKOS Metoprolol Succinate 75 mg 08/10/23 23:00 08/12/23 08:56 Metoprolol Succinate (Xl) 50 Mg Tab PO 75 mg DAILY AMRKOS Administration Oxycodone HCl 5 mg 08/11/23 21:15 08/11/23 23:46 Oxycodone 5 Mg Tablet PO 5 mg Q4H PRN Administration Sodium Chloride 5 ml 08/11/23 09:00 08/11/23 10:09 Sodium Chloride 0.9 % (Flush) 10 Ml Syringe IVF 5 ml BID MARKOS Administration <Saul Contreras MD - Last Filed: 08/10/23 22:00> Medical Decision Making MDM Narrative Medical decision making narrative: SHOSHANA -- Received Mr. Pruett at change of shift pending CT abdomen pelvis results and admission. I did review these images myself. Appears to have numerous gallstones and pericholecystic stranding. Does not appear to be any significant gallbladder wall thickening. Radiology over-read as below IMPRESSION: Cholelithiasis with apparent pericholecystic inflammation, without biliary ductal dilatation, which can be seen in the setting of acute cholecystitis. While there is mild pericolonic fat stranding involving the ascending colon at the hepatic flexure, no colonic diverticula are identified to suggest acute diverticulitis, suggesting that the pericolonic inflammation could be secondary to an underlying acute cholecystitis. Discussed these findings with hospitalist for admission. <Saul Contreras MD - Last Filed: 08/10/23 22:00> Lab Data Lab results reviewed: Yes I reviewed the patient's lab results <Saul Contreras MD - Last Filed: 08/10/23 22:00> Labs: Lab Results 08/10/23 08/10/23 08/10/23 Range/Units 18:15 18:15 18:15 Sodium 137 (135-149) mmol/L Potassium 4.0 (3.6-5.1) mmol/L Chloride 103 (96-114) mmol/L Carbon Dioxide 22 (20-32) mmol/L Anion Gap 12 (7-15) mEq/L BUN 8 (5-24) mg/dL Creatinine 0.8 (0.5-1.5) mg/dL Estimated Creat Clear 137.42 Estimated GFR 116 ml/min Glucose 97 (60-115) mg/dL Lactate 1.1 (0.5-1.9) mmol/L Calcium 8.9 (8.4-10.6) mg/dL Total Bilirubin 1.0 Cancelled (0.1-1.5) mg/dL Direct Bilirubin 0.1 Cancelled (0.0-0.5) mg/dL AST 30 (12-35) U/L ALT (4-50) U/L Alkaline Phosphatase (40-150) U/L C-Reactive Protein (0.5-1.0) mg/dL Total Protein (6.0-8.3) g/dL Albumin (3.3-5.0) g/dL Lipase (23-300) U/L SARS-CoV-2 (PCR) (Negative) Influenza Type A (PCR) (Negative) Influenza Type B (PCR) (Negative) RSV (PCR) (Negative) 08/10/23 08/10/23 08/10/23 Range/Units 18:15 18:15 18:15 Sodium (135-149) mmol/L Potassium (3.6-5.1) mmol/L Chloride (96-114) mmol/L Carbon Dioxide (20-32) mmol/L Anion Gap (7-15) mEq/L BUN (5-24) mg/dL Creatinine (0.5-1.5) mg/dL Estimated Creat Clear Estimated GFR ml/min Glucose (60-115) mg/dL Lactate (0.5-1.9) mmol/L Calcium (8.4-10.6) mg/dL Total Bilirubin (0.1-1.5) mg/dL Direct Bilirubin (0.0-0.5) mg/dL AST Cancelled (12-35) U/L ALT 46 Cancelled (4-50) U/L Alkaline Phosphatase 91 Cancelled (40-150) U/L C-Reactive Protein 19.9 H (0.5-1.0) mg/dL Total Protein 7.3 (6.0-8.3) g/dL Albumin (3.3-5.0) g/dL Lipase (23-300) U/L SARS-CoV-2 (PCR) (Negative) Influenza Type A (PCR) (Negative) Influenza Type B (PCR) (Negative) RSV (PCR) (Negative) 08/10/23 08/10/23 08/10/23 Range/Units 18:15 18:15 18:15 Sodium (135-149) mmol/L Potassium (3.6-5.1) mmol/L Chloride (96-114) mmol/L Carbon Dioxide (20-32) mmol/L Anion Gap (7-15) mEq/L BUN (5-24) mg/dL Creatinine (0.5-1.5) mg/dL Estimated Creat Clear Estimated GFR ml/min Glucose (60-115) mg/dL Lactate (0.5-1.9) mmol/L Calcium (8.4-10.6) mg/dL Total Bilirubin (0.1-1.5) mg/dL Direct Bilirubin (0.0-0.5) mg/dL AST (12-35) U/L ALT (4-50) U/L Alkaline Phosphatase (40-150) U/L C-Reactive Protein (0.5-1.0) mg/dL Total Protein Cancelled (6.0-8.3) g/dL Albumin 4.3 Cancelled (3.3-5.0) g/dL Lipase 33 Cancelled (23-300) U/L SARS-CoV-2 (PCR) (Negative) Influenza Type A (PCR) (Negative) Influenza Type B (PCR) (Negative) RSV (PCR) (Negative) 08/10/23 Range/Units 18:45 Sodium (135-149) mmol/L Potassium (3.6-5.1) mmol/L Chloride (96-114) mmol/L Carbon Dioxide (20-32) mmol/L Anion Gap (7-15) mEq/L BUN (5-24) mg/dL Creatinine (0.5-1.5) mg/dL Estimated Creat Clear Estimated GFR ml/min Glucose (60-115) mg/dL Lactate (0.5-1.9) mmol/L Calcium (8.4-10.6) mg/dL Total Bilirubin (0.1-1.5) mg/dL Direct Bilirubin (0.0-0.5) mg/dL AST (12-35) U/L ALT (4-50) U/L Alkaline Phosphatase (40-150) U/L C-Reactive Protein (0.5-1.0) mg/dL Total Protein (6.0-8.3) g/dL Albumin (3.3-5.0) g/dL Lipase (23-300) U/L SARS-CoV-2 (PCR) Negative SARS-CoV-2 (Negative) Influenza Type A (PCR) Negative PCR FLU A (Negative) Influenza Type B (PCR) Negative PCR FLU B (Negative) RSV (PCR) Negative PCR RSV (Negative) <Jolene Guzman MD - Last Filed: 08/12/23 12:38> Lab Results 08/10/23 08/10/23 08/10/23 Range/Units 18:15 18:15 18:15 Sodium 137 (135-149) mmol/L Potassium 4.0 (3.6-5.1) mmol/L Chloride 103 (96-114) mmol/L Carbon Dioxide 22 (20-32) mmol/L Anion Gap 12 (7-15) mEq/L BUN 8 (5-24) mg/dL Creatinine 0.8 (0.5-1.5) mg/dL Estimated Creat Clear 137.42 Estimated GFR 116 ml/min Glucose 97 (60-115) mg/dL Lactate 1.1 (0.5-1.9) mmol/L Calcium 8.9 (8.4-10.6) mg/dL Total Bilirubin 1.0 Cancelled (0.1-1.5) mg/dL Direct Bilirubin 0.1 Cancelled (0.0-0.5) mg/dL AST 30 (12-35) U/L ALT (4-50) U/L Alkaline Phosphatase (40-150) U/L C-Reactive Protein (0.5-1.0) mg/dL Total Protein (6.0-8.3) g/dL Albumin (3.3-5.0) g/dL Lipase (23-300) U/L SARS-CoV-2 (PCR) (Negative) Influenza Type A (PCR) (Negative) Influenza Type B (PCR) (Negative) RSV (PCR) (Negative) 08/10/23 08/10/23 08/10/23 Range/Units 18:15 18:15 18:15 Sodium (135-149) mmol/L Potassium (3.6-5.1) mmol/L Chloride (96-114) mmol/L Carbon Dioxide (20-32) mmol/L Anion Gap (7-15) mEq/L BUN (5-24) mg/dL Creatinine (0.5-1.5) mg/dL Estimated Creat Clear Estimated GFR ml/min Glucose (60-115) mg/dL Lactate (0.5-1.9) mmol/L Calcium (8.4-10.6) mg/dL Total Bilirubin (0.1-1.5) mg/dL Direct Bilirubin (0.0-0.5) mg/dL AST Cancelled (12-35) U/L ALT 46 Cancelled (4-50) U/L Alkaline Phosphatase 91 Cancelled (40-150) U/L C-Reactive Protein 19.9 H (0.5-1.0) mg/dL Total Protein 7.3 (6.0-8.3) g/dL Albumin (3.3-5.0) g/dL Lipase (23-300) U/L SARS-CoV-2 (PCR) (Negative) Influenza Type A (PCR) (Negative) Influenza Type B (PCR) (Negative) RSV (PCR) (Negative) 08/10/23 08/10/23 08/10/23 Range/Units 18:15 18:15 18:15 Sodium (135-149) mmol/L Potassium (3.6-5.1) mmol/L Chloride (96-114) mmol/L Carbon Dioxide (20-32) mmol/L Anion Gap (7-15) mEq/L BUN (5-24) mg/dL Creatinine (0.5-1.5) mg/dL Estimated Creat Clear Estimated GFR ml/min Glucose (60-115) mg/dL Lactate (0.5-1.9) mmol/L Calcium (8.4-10.6) mg/dL Total Bilirubin (0.1-1.5) mg/dL Direct Bilirubin (0.0-0.5) mg/dL AST (12-35) U/L ALT (4-50) U/L Alkaline Phosphatase (40-150) U/L C-Reactive Protein (0.5-1.0) mg/dL Total Protein Cancelled (6.0-8.3) g/dL Albumin 4.3 Cancelled (3.3-5.0) g/dL Lipase 33 Cancelled (23-300) U/L SARS-CoV-2 (PCR) (Negative) Influenza Type A (PCR) (Negative) Influenza Type B (PCR) (Negative) RSV (PCR) (Negative) 08/10/23 Range/Units 18:45 Sodium (135-149) mmol/L Potassium (3.6-5.1) mmol/L Chloride (96-114) mmol/L Carbon Dioxide (20-32) mmol/L Anion Gap (7-15) mEq/L BUN (5-24) mg/dL Creatinine (0.5-1.5) mg/dL Estimated Creat Clear Estimated GFR ml/min Glucose (60-115) mg/dL Lactate (0.5-1.9) mmol/L Calcium (8.4-10.6) mg/dL Total Bilirubin (0.1-1.5) mg/dL Direct Bilirubin (0.0-0.5) mg/dL AST (12-35) U/L ALT (4-50) U/L Alkaline Phosphatase (40-150) U/L C-Reactive Protein (0.5-1.0) mg/dL Total Protein (6.0-8.3) g/dL Albumin (3.3-5.0) g/dL Lipase (23-300) U/L SARS-CoV-2 (PCR) Negative SARS-CoV-2 (Negative) Influenza Type A (PCR) Negative PCR FLU A (Negative) Influenza Type B (PCR) Negative PCR FLU B (Negative) RSV (PCR) Negative PCR RSV (Negative) <Saul Contreras MD - Last Filed: 08/10/23 22:00> Discharge Plan Discharge Clinical Impression: Fever, Acute cholecystitis <Jolene Guzman MD - Last Filed: 08/12/23 12:38> Patient Disposition: Admitted As Observation <Jolene Guzman MD - Last Filed: 08/12/23 12:38> Condition: Stable <Jolene Guzman MD - Last Filed: 08/12/23 12:38> Activity Level: No strenuous activity <Jolene Guzman MD - Last Filed: 08/12/23 12:38> No strenuous activity <Saul Contreras MD - Last Filed: 08/10/23 22:00> Activity Detail: No lifting more than 15-20 lbs for a total of 4-6 weeks post op <Jolene Guzman MD - Last Filed: 08/12/23 12:38> No lifting more than 15-20 lbs for a total of 4-6 weeks post op <Saul Contreras MD - Last Filed: 08/10/23 22:00> Discharge Diet: Regular <Jolene Guzman MD - Last Filed: 08/12/23 12:38> Regular <Saul Contreras MD - Last Filed: 08/10/23 22:00>
[2023-08-10] MEDS: 0.9 % SODIUM CHLORIDE 1000 ml 1,000 ML IV (18:40)
[2023-08-10 19:14] LABS: Lactate Sepsis w/Reflex* 1.1 mmol/L (0.5-1.9)
[2023-08-10 19:32] LABS: Albumin* 4.3 g/dL (3.3-5.0); Chloride* 103 mmol/L (96-114); Sodium* 137 mmol/L (135-149)
[2023-08-10 19:35] LABS: Anion Gap 12 mEq/L (7-15); Bilirubin Direct* 0.1 mg/dL (0.0-0.5); Carbon Dioxide* 22 mmol/L (20-32); Creatinine* 0.8 mg/dL (0.5-1.5); Est. Creatinine Clearance* 137.42; Estimated Glomerular Filt Rate 116 ml/min; Total Protein* 7.3 g/dL (6.0-8.3)
[2023-08-10 19:35] LABS: PCR FLU A Negative PCR FLU A (Negative); PCR FLU B Negative PCR FLU B (Negative); PCR RSV Negative PCR RSV (Negative)
[2023-08-10 19:36] LABS: Alanine Aminotransferase* 46 U/L (4-50); Alkaline Phosphatase* 91 U/L (40-150); Aspartate Amino Transferase* 30 U/L (12-35); Blood Urea Nitrogen* 8 mg/dL (5-24); Calcium* 8.9 mg/dL (8.4-10.6); Glucose* 97 mg/dL (60-115); Lipase* 33 U/L (23-300)
[2023-08-10 19:38] LABS: SARS PCR* Negative SARS-CoV-2 (Negative)
[2023-08-10 19:50] LABS: C Reactive Protein* 19.9 mg/dL (0.5-1.0)
--- NOTE | 2023-08-10 20:35 | CRLHL7_ITS ---
For Patients: As a result of the Century Cures Act, medical imaging exams and procedure reports are released immediately into your electronic medical record. You may view this report before your referring provider. If you have questions, please contact your health care provider. INDICATION: Abdominal pain and fever. TECHNIQUE: Multiplanar CT examination of the abdomen and pelvis were acquired after the administration of 150 mL Isovue 370 intravenously. COMPARISON: Same-day right upper quadrant ultrasound. FINDINGS: Lower chest: Unremarkable. Liver: Normal. Gallbladder/Biliary: Cholelithiasis with minimal gallbladder wall thickening. There is pericholecystic inflammation. No biliary ductal dilitation. Pancreas: Normal. Spleen: Normal. Adrenal Glands: Normal. Kidneys: Normal size and symmetrically enhancing. No obstructive calculi or hydronephrosis. Ureters: Unremarkable. Bladder: Unremarkable. Bowel: No obstruction. The appendix is normal. No significant colonic diverticulosis. There is pericolonic fat stranding involving several loops of ascending colon as it approaches the hepatic flexure, with minimal associated bowel wall thickening. Pelvic organs: Unremarkable. Peritoneum: No free fluid or pneumoperitoneum. Vessels: Normal. Portal vein remains patent. No significant atherosclerotic disease. Lymph Nodes: No lymphadenopathy. Abdominal Wall/Soft Tissues: Small fat containing umbilical hernia. Otherwise, unremarkable. Bones: Unremarkable. IMPRESSION: Cholelithiasis with apparent pericholecystic inflammation, without biliary ductal dilatation, which can be seen in the setting of acute cholecystitis. While there is mild pericolonic fat stranding involving the ascending colon at the hepatic flexure, no colonic diverticula are identified to suggest acute diverticulitis, suggesting that the pericolonic inflammation could be secondary to an underlying acute cholecystitis. Please note that all CT scans at this facility use dose modulation, iterative reconstruction, and/or weight-based dosing when appropriate to reduce radiation dose to as low as reasonably achievable. Dictated by Rahul Wiley MD @ 08/10/2023 9:53:46 PM (Electronically Signed)
[2023-08-10] MEDS: ACETAMINOPHEN 500 MG TABLET 1000 MG PO (20:53)
[2023-08-10] MEDS: PIPERACILLIN/TAZOBACTAM 3.375 GM in 0.9 % SODIUM CHLORIDE Mini-bag 100 ML IVPB (21:13)
--- NOTE | 2023-08-10 23:10 | PM.IMHP1 ---
Hospitalist- H&P: HPI History of Present Illness Time Seen by Provider: 11:00 Date Seen: 08/10/23 Chief complaint: Gallblader issues-high WBC, bili in urine, fever Narrative: Gomez Pruett is a 38 year old man presents to emergency department with fever and recent 2-3 day history of abdominal pain. Temperatures at home as high as 101.5? F, which he has had for the last 24+ hours. For years has had intermittent right upper quadrant abdominal pain. States pain quality a similar to heartburn but all over his abdomen and more aching. Interestingly he states that when he gets these episodes as he has had intermittently over the years by the time it settles out it seems to involve mostly his right shoulder blade area. This past Wednesday he was awakened around 4 in the morning with severe pain. This pain lasted roughly 30 hours. Had intermittent nausea without vomiting. Her last night he was starting to feel chilled. Temperature was 101.5? F. unable to find a comfortable position. Has had decreased oral intake since then. Last ate around 2:00 a.m. today when he had brown cinnamon and sugar pop tarts. No pain for the last 24+ hours. No nausea or vomiting for the past 24 hours. Review of Systems Status of ROS: Reports: 10 or more systems reviewed and unremarkable except as noted in History and below Narrative: Paroxysmal atrial fibrillation with chadsVasc score of 0. Not anticoagulated. Recent transthoracic echocardiogram unremarkable for anatomic abnormalities. Recent MR scan of the heart also negative for anatomic abnormalities. Saw a voice network engineer, Dr. Burgos, who recommended continued use of scheduled metoprolol and diltiazem orally. Remainder review of systems is negative. Tobacco: Smokes 1-2 cigars per week Alcohol: Usually drinks less than or equal to 1 drink per week 7 times he might drink as many as 2 or 3 beers per week. Does use THC gummies to help him with sleep. [facility] Medical History (Updated 08/10/23 @ 23:10 by Ricky Ramesh MD) Insomnia ?G47.00 - Insomnia, unspecified (ICD-10) Paroxysmal atrial fibrillation with rapid ventricular response ?I48.0 - Paroxysmal atrial fibrillation (ICD-10) Family history of thyroid disease ?Z83.49 - Family history of other endocrine, nutritional and metabolic diseases (ICD-10) Family history of ASCVD ?Z82.49 - Family history of ischemic heart disease and other diseases of the circulatory system (ICD-10) Obesity ?E66.9 - Obesity, unspecified (ICD-10) Palpitation ?R00.2 - Palpitations (ICD-10) Hypertension ?I10 - Essential (primary) hypertension (ICD-10) Social History Smoking Status: Current some day smoker What tobacco products do you use: cigars How often do you have a drink containing alcohol: 2-4 times a month AUDIT-C Alcohol total score: 2 Non-prescribed substance use: denies use and other Non-prescribed substance use details: gummies occas, last 2 weeks ago Meds Home Medications and Allergies Home Medications Medication Instructions Recorded Confirmed Type aspirin 81 mg tablet,delayed 81 mg PO QDAY 05/10/23 08/10/23 History release (Adult Aspirin Regimen) Home Medication Comments: 1. Metoprolol succinate 50 mg once daily 2. Diltiazem 120 mg extended release capsule once daily Allergies Allergy/AdvReac Type Severity Reaction Status Date / Time No Known Drug Allergies Allergy Verified 08/10/23 15:51 Exam Narrative: Exam Narrative: I examine him in his hospital room. He appears comfortable and in no acute distress. Vision and hearing are grossly normal. Alert, oriented to self, place, time, situation. Friendly, articulate, cooperative. No icterus or conjunctival injection. Pupils equally round and reactive to light and accommodation. Conjugate gaze. No jaundice, petechiae, rashes. Dry and tacky buccal mucosa. Neck is supple. Midline trachea. No JVD or hepatojugular reflux. No carotid bruits. Lungs are clear to auscultation with no wheezing, rhonchi, or rales. Heart tones with regular rhythm, normal S1-S2. Abdomen with active bowel sounds, soft, nontender. Extremities without edema. Palpable pulses upper and lower extremities. Const: Vital Signs, click to edit/add: Vital Signs - 24 hr 08/10/23 17:43 08/10/23 17:59 08/10/23 18:00 Temperature 100.7 F H Pulse Rate 86 88 Pulse Rate [Pulse Oximeter] 90 Respiratory Rate 22 Blood Pressure [Le ft Upper Arm] 139/117 H Pulse Oximetry 95 95 94 Oxygen Delivery Me thod Room Air 08/10/23 18:15 08/10/23 18:30 08/10/23 18:45 Temperature Pulse Rate 105 H 106 H 98 Pulse Rate [Pulse Oximeter] Respiratory Rate Blood Pressure [Le ft Upper Arm] Pulse Oximetry 95 95 96 Oxygen Delivery Me thod 08/10/23 19:00 08/10/23 19:15 08/10/23 19:30 Temperature Pulse Rate 96 92 90 Pulse Rate [Pulse Oximeter] Respiratory Rate Blood Pressure [Le ft Upper Arm] Pulse Oximetry 97 98 98 Oxygen Delivery Me thod 08/10/23 19:36 08/10/23 19:45 08/10/23 20:00 Temperature 99.6 F Pulse Rate 91 93 Pulse Rate [Pulse Oximeter] Respiratory Rate Blood Pressure [Le ft Upper Arm] Pulse Oximetry 98 98 Oxygen Delivery Me thod 08/10/23 20:15 08/10/23 20:30 08/10/23 20:45 Temperature Pulse Rate 97 94 104 H Pulse Rate [Pulse Oximeter] Respiratory Rate Blood Pressure [Le ft Upper Arm] Pulse Oximetry 97 97 97 Oxygen Delivery Me thod 08/10/23 21:47 08/10/23 21:51 Temperature 100.6 F H 100.6 F H Pulse Rate Pulse Rate [Pulse Oximeter] Respiratory Rate Blood Pressure [Le ft Upper Arm] Pulse Oximetry Oxygen Delivery Me thod Documenting provider has reviewed patient's vital signs: yes Hospitalist - H&P: Result Labs Labs: BMP 08/10/23 18:15 Sodium 137 Potassium 4.0 Chloride 103 Carbon Dioxide 22 BUN 8 Creatinine 0.8 Glucose 97 Calcium 8.9 Liver Function 08/10/23 08/10/23 08/10/23 Range/Units 18:15 18:15 18:15 Total Bilirubin 1.0 Cancelled (0.1-1.5) mg/dL Direct Bilirubin 0.1 Cancelled (0.0-0.5) mg/dL AST 30 (12-35) U/L ALT (4-50) U/L Alkaline Phosphatase (40-150) U/L Albumin (3.3-5.0) g/dL 08/10/23 08/10/23 08/10/23 Range/Units 18:15 18:15 18:15 Total Bilirubin (0.1-1.5) mg/dL Direct Bilirubin (0.0-0.5) mg/dL AST Cancelled (12-35) U/L ALT 46 Cancelled (4-50) U/L Alkaline Phosphatase 91 Cancelled (40-150) U/L Albumin 4.3 (3.3-5.0) g/dL 08/10/23 Range/Units 18:15 Total Bilirubin (0.1-1.5) mg/dL Direct Bilirubin (0.0-0.5) mg/dL AST (12-35) U/L ALT (4-50) U/L Alkaline Phosphatase (40-150) U/L Albumin Cancelled (3.3-5.0) g/dL Imaging CT scan - abdomen: Attestation: I have reviewed the pertinent imaging results. Radiologist's impression: 08/10/2023 Cholelithiasis with apparent pericholecystic inflammation, without biliary ductal dilatation, which can be seen in the setting of acute cholecystitis. While there is mild pericolonic fat stranding involving the ascending colon at the hepatic flexure, no colonic diverticula are identified to suggest acute diverticulitis, suggesting that the pericolonic inflammation could be secondary to an underlying acute cholecystitis. US - abdomen: Attestation: I have reviewed the pertinent imaging results. Radiologist's impression: Cholelithiasis and mild thickening of the gallbladder wall, indeterminate for acute cholecystitis. Assessment and Plan Assessment and plan (1) RUQ pain: Problem comment: - see acute cholecystitis entry Status: Acute (2) Acute cholecystitis: Problem comment: - 08/10/2023: abdominal u/s demonstrates: cholelithiasis and mild thickening of the gallbladder wall, indeterminate for acute cholecystitis. - 08/10/2023 CT scan of abd and pelvis: Cholelithiasis with apparent pericholecystic inflammation, without biliary ductal dilatation, which can be seen in the setting of acute cholecystitis. While there is mild pericolonic fat stranding involving the ascending colon at the hepatic flexure, no colonic diverticula are identified to suggest acute diverticulitis, suggesting that the pericolonic inflammation could be secondary to an underlying acute cholecystitis. - admit, NPO, IVF, PRN analgesics and antiemetics Status: Acute (3) Fever: Problem comment: - possible acute cholecystitis: blood cultures obtained; IV Zosyn; repeat labs; consult with general surgeon, Dr. Mendes. Status: Acute (4) Tachycardia: Problem comment: - paroxysmal atrial fibrillation, CHADSVasc 0, not anticoagulated - dehydration, treat with IVF Status: Acute (5) Insomnia: Problem comment: - Chronic - Awaiting sleep study - consider consultation with sleep specialist Status: Acute (6) Obesity: Problem comment: - 08/10/2023, bmi 46 Status: Acute (7) Paroxysmal atrial fibrillation with rapid ventricular response: Status: Acute Plan 1. I reviewed above impression with patient. 2. Answered his questions. 3. Patient agreeable to above stated plans and recommendations.
[2023-08-11] VITALS (27 sets, daily range): BP systolic 123–151; BP diastolic 80–97; PULSE 76–95; RESP 14–18; TEMP 36.7–37.4; O2SAT 90–98; BMI 46.0
[2023-08-11] MEDS: METOPROLOL SUCCINATE (XL) 50 MG TAB 75 MG PO ×2 (00:37→10:07)
[2023-08-11] MEDS: PIPERACILLIN/TAZOBACTAM 3.375 GM in 0.9 % SODIUM CHLORIDE Mini-bag 100 ML IVPB ×4 (02:51→23:39)
[2023-08-11] MEDS: ACETAMINOPHEN 325 MG TABLET 650 MG PO ×2 (03:34→21:25)
[2023-08-11 06:23] LABS: HCO3 VBG 26 mmol/L (21-28); Lactate* 0.9 mmol/L (0.5-1.9); PCO2 VBG 42 mmHG (40-50); PO2 VBG 57.7 mmHG (25-47); pH VBG 7.408 (7.32-7.43)
[2023-08-11 06:31] LABS: Basophils Percent Auto 0.2 % (0.0-3.0); Hematocrit 42.9 % (37.0-53.0); Hemoglobin* 14.6 gm/dL (13.5-17.5); Immature Granulocytes Pct Auto 0.3 %; Lymphocytes Percent Auto 12.8 % (20-44); Mean Corpuscular HGB Conc 34 gm/dL (32-36); Mean Corpuscular Hemoglobin 30 pg (26-34); Mean Corpuscular Volume 89 fL (80-100); Monocytes Percent Auto 11.6 % (0.0-11.0); Neutrophils Percent Auto 74.1 % (42.0-72.0); RDW Coefficient of Variation % 13.3 % (11.5-15.5); Red Blood Count 4.83 m/uL (4.30-5.90); White Blood Count* 21.03 K/uL (4.50-11.00)
--- NOTE | 2023-08-11 06:46 | PC.NURSE ---
End of shift: Pt arrived to floor at 2200. A&O, pleasant and cooperative. VSS. Reports slight headache but denies all other pain. PRN Tylenol given. Pt has not been able to sleep overnight. He states that this is a reoccurring problem at home. BS active. Abd soft and nontender on palpation. UP at arnel.
[2023-08-11 06:57] LABS: Albumin* 4.2 g/dL (3.3-5.0); Chloride* 105 mmol/L (96-114); Slide Review Reflex Yes; Sodium* 137 mmol/L (135-149)
[2023-08-11 06:59] LABS: Creatinine* 0.8 mg/dL (0.5-1.5); Est. Creatinine Clearance* 141.49; Estimated Glomerular Filt Rate 116 ml/min
[2023-08-11 07:00] LABS: Alkaline Phosphatase* 79 U/L (40-150); Anion Gap 7 mEq/L (7-15); Aspartate Amino Transferase* 22 U/L (12-35); Bilirubin Direct* 0.2 mg/dL (0.0-0.5); Bilirubin Total* 1.6 mg/dL (0.1-1.5); Blood Urea Nitrogen* 8 mg/dL (5-24); Carbon Dioxide* 25 mmol/L (20-32); Glucose* 112 mg/dL (60-115); Lipase* 21 U/L (23-300); Total Protein* 7.4 g/dL (6.0-8.3)
[2023-08-11 07:01] LABS: Alanine Aminotransferase* 37 U/L (4-50); Calcium* 8.7 mg/dL (8.4-10.6); Magnesium* 2.4 mg/dL (1.5-2.6); Phosphorus* 3.3 mg/dL (2.5-4.5)
[2023-08-11 07:16] LABS: C Reactive Protein* 19.7 mg/dL (0.5-1.0); Troponin I* < 0.01 ng/mL (0.01-0.04)
[2023-08-11 07:35] LABS: Platelet Count* 219 K/uL (140-440); Slide Review Acceptable Review (Acceptable)
--- NOTE | 2023-08-11 09:54 | PM.GSCN ---
History of Present Illness Consult details Date Seen: 08/11/23 Consult date: 08/11/23 Narrative: 38-year-old male presented to emergency room with epigastric pain and fevers. Patient states that on Wednesday and Wednesday he had recurrent pain. He describes the pain as it starts in his lower back and goes up to his upper abdomen. The pain then settles under his right shoulder blade. Sometimes the pain is epigastric. The pain was improving on Wednesday but patient developed a fever of 101.5. This concerned him and he presented to emergency room. Patient had similar painful episodes for years. It usually starts the same way. The pain usually resolves. Patient has never had fevers in the past and that was concerning to him. The pain is not dependent on what type of food he eats. In the last 3 years he had about 2 episodes of pain per year. During his last episode he had nausea but no vomiting. In the emergency room he was found to have an elevated WBC of 22. His liver function tests and his lipase were normal. I reviewed his ultrasound and his CT scan. His gallbladder ultrasound showed distended gallbladder with gallbladder wall of 5 mm. The common bile duct was 5 mm. He had evidence of cholelithiasis. His abdominal CT showed inflamed gallbladder with pericholecystic inflammation. His transverse colon appears to be close and possibly adherent to the gallbladder inflamed gallbladder. There were no dilated loops of small large intestine. Patient also has a history of paroxysmal atrial fibrillation. Patient usually feels the onset of atrial fibrillation. He had a workup done by his primary care doctor. He is a call showed normal EF and normal heart size. He converted from sinus rhythm to AFib during the echo. Review of Systems Narrative: General: no fevers HENT: no problems swallowing CV: Denies chest pain Resp: no cough GI: See above : no dysuria, no increased urinary frequency, no hematuria Skin: no new rashes Musculoskeletal: See above Neuro: no muscle weakness Psyche: +anxiety PFSH [facility] Medical History (Updated 08/10/23 @ 23:10 by Ricky Ramesh MD) Insomnia ?G47.00 - Insomnia, unspecified (ICD-10) Paroxysmal atrial fibrillation with rapid ventricular response ?I48.0 - Paroxysmal atrial fibrillation (ICD-10) Family history of thyroid disease ?Z83.49 - Family history of other endocrine, nutritional and metabolic diseases (ICD-10) Family history of ASCVD ?Z82.49 - Family history of ischemic heart disease and other diseases of the circulatory system (ICD-10) Obesity ?E66.9 - Obesity, unspecified (ICD-10) Palpitation ?R00.2 - Palpitations (ICD-10) Hypertension ?I10 - Essential (primary) hypertension (ICD-10) Social History What is your current living situation?: I presently have a place to live Problems where you live: no known problems Problems where you live details: n/a In the past 12 months, utilities in danger of being shut off: no In past 12 months, lack of transportation kept you from medical appts, meetings, work, or getting things needed for daily living: no In the past 12 mos, have been you worried that your food would run out before you had money to buy more?: never true In the past 12 mos, the food you bought just didn't last and you didn't have money to buy more?: never true Highest level of school completed/degree received: some college, no degree Smoking Status: Current some day smoker What tobacco products do you use: cigars How often do you have a drink containing alcohol: 2-4 times a month AUDIT-C Alcohol total score: 2 Non-prescribed substance use: other Non-prescribed substance use details: THC gummies Caffeine: Yes How often does anyone, including family, friends and others, physically hurt you: never How often does anyone, including family, friends and others, insult or talk down to you: never How often does anyone, including family, friends and others, threaten you with harm: never How often does anyone, including family, friends and others, scream or curse at you: never service: No Meds Home Medications and Allergies Home Medications Medication Instructions Recorded Confirmed Type aspirin 81 mg tablet,delayed 81 mg PO QDAY 05/10/23 08/11/23 History release (Adult Aspirin Regimen) Allergies Allergy/AdvReac Type Severity Reaction Status Date / Time No Known Drug Allergies Allergy Verified 08/10/23 15:51 Exam Narrative: Exam Narrative: General appearance: Alert, cooperative, and in no distress Pulmonary: Chest symmetric, lungs clear bilaterally Cardiovascular Heart: Regular rate and rhythm, S1, S2, no murmurs/rubs/gallops Gastrointestinal Abdominal: soft, obese, not distended, there is no tenderness to palpation and patient has negative Garcia sign. Skin: Normal skin color, texture, and turgor. No rashes or lesions. Psychiatric: Alert, cooperative, normal affect. Const: Vital Signs, click to edit/add: Vital Signs - 24 hr 08/10/23 17:43 08/10/23 17:59 08/10/23 18:00 Temperature 100.7 F H Pulse Rate 86 88 Pulse Rate [Pulse Oximeter] 90 Respiratory Rate 22 Blood Pressure [Le ft Upper Arm] 139/117 H Blood Pressure [Ri ght Arm] Pulse Oximetry 95 95 94 Oxygen Delivery Me thod Room Air 08/10/23 18:15 08/10/23 18:30 08/10/23 18:45 Temperature Pulse Rate 105 H 106 H 98 Pulse Rate [Pulse Oximeter] Respiratory Rate Blood Pressure [Le ft Upper Arm] Blood Pressure [Ri ght Arm] Pulse Oximetry 95 95 96 Oxygen Delivery Me thod 08/10/23 19:00 08/10/23 19:15 08/10/23 19:30 Temperature Pulse Rate 96 92 90 Pulse Rate [Pulse Oximeter] Respiratory Rate Blood Pressure [Le ft Upper Arm] Blood Pressure [Ri ght Arm] Pulse Oximetry 97 98 98 Oxygen Delivery Me thod 08/10/23 19:36 08/10/23 19:45 08/10/23 20:00 Temperature 99.6 F Pulse Rate 91 93 Pulse Rate [Pulse Oximeter] Respiratory Rate Blood Pressure [Le ft Upper Arm] Blood Pressure [Ri ght Arm] Pulse Oximetry 98 98 Oxygen Delivery Me thod 08/10/23 20:15 08/10/23 20:30 08/10/23 20:45 Temperature Pulse Rate 97 94 104 H Pulse Rate [Pulse Oximeter] Respiratory Rate Blood Pressure [Le ft Upper Arm] Blood Pressure [Ri ght Arm] Pulse Oximetry 97 97 97 Oxygen Delivery Me thod 08/10/23 21:47 08/10/23 21:51 08/10/23 23:00 Temperature 100.6 F H 100.6 F H 99.3 F Pulse Rate Pulse Rate [Pulse Oximeter] 95 Respiratory Rate 16 Blood Pressure [Le ft Upper Arm] Blood Pressure [Ri ght Arm] 142/89 H Pulse Oximetry 96 Oxygen Delivery Me thod Room Air 08/10/23 23:00 08/10/23 23:30 08/11/23 00:23 Temperature 99.3 F Pulse Rate 97 Pulse Rate [Pulse Oximeter] 95 Respiratory Rate 16 16 Blood Pressure [Le ft Upper Arm] Blood Pressure [Ri ght Arm] 142/89 H Pulse Oximetry 96 96 Oxygen Delivery Me thod Room Air Room Air 08/11/23 03:00 08/11/23 07:00 08/11/23 08:45 Temperature 99.0 F Pulse Rate 79 Pulse Rate [Pulse Oximeter] 89 Respiratory Rate 16 Blood Pressure [Le ft Upper Arm] Blood Pressure [Ri ght Arm] 134/91 H Pulse Oximetry 97 97 Oxygen Delivery Me thod Room Air Room Air 08/11/23 08:45 Temperature 98.2 F Pulse Rate Pulse Rate [Pulse Oximeter] 76 Respiratory Rate 16 Blood Pressure [Le ft Upper Arm] Blood Pressure [Ri ght Arm] 127/83 Pulse Oximetry 97 Oxygen Delivery Me thod Room Air Results Labs Labs: Abnormal lab results 08/10/23 08/11/23 Range/Units 18:15 06:15 WBC 21.03 H (4.50-11.00) K/uL Neut % (Auto) 74.1 H (42.0-72.0) % Lymph % (Auto) 12.8 L (20-44) % [place] % (Auto) 11.6 H (0.0-11.0) % Neut # (Auto) 15.60 H (1.7-7.0) K/uL [place] # (Auto) 2.40 H (0.00-0.90) K/UL VBG pO2 57.7 H (25-47) mmHG Total Bilirubin 1.6 H (0.1-1.5) mg/dL Troponin I < 0.01 L (0.01-0.04) ng/mL C-Reactive Protein 19.9 H 19.7 H (0.5-1.0) mg/dL Lipase 21 L (23-300) U/L Diabetes panel 08/10/23 08/10/23 08/10/23 Range/Units 18:15 18:15 18:15 Sodium 137 (135-149) mmol/L Potassium 4.0 (3.6-5.1) mmol/L Chloride 103 (96-114) mmol/L Carbon Dioxide 22 (20-32) mmol/L BUN 8 (5-24) mg/dL Creatinine 0.8 (0.5-1.5) mg/dL Glucose 97 (60-115) mg/dL Calcium 8.9 (8.4-10.6) mg/dL AST 30 Cancelled (12-35) U/L ALT 46 Cancelled (4-50) U/L Alkaline Phosphatase 91 (40-150) U/L Total Protein (6.0-8.3) g/dL Albumin (3.3-5.0) g/dL 08/10/23 08/10/23 08/10/23 Range/Units 18:15 18:15 18:15 Sodium (135-149) mmol/L Potassium (3.6-5.1) mmol/L Chloride (96-114) mmol/L Carbon Dioxide (20-32) mmol/L BUN (5-24) mg/dL Creatinine (0.5-1.5) mg/dL Glucose (60-115) mg/dL Calcium (8.4-10.6) mg/dL AST (12-35) U/L ALT (4-50) U/L Alkaline Phosphatase Cancelled (40-150) U/L Total Protein 7.3 Cancelled (6.0-8.3) g/dL Albumin 4.3 Cancelled (3.3-5.0) g/dL 08/11/23 Range/Units 06:15 Sodium 137 (135-149) mmol/L Potassium 4.0 (3.6-5.1) mmol/L Chloride 105 (96-114) mmol/L Carbon Dioxide 25 (20-32) mmol/L BUN 8 (5-24) mg/dL Creatinine 0.8 (0.5-1.5) mg/dL Glucose 112 (60-115) mg/dL Calcium 8.7 (8.4-10.6) mg/dL AST 22 (12-35) U/L ALT 37 (4-50) U/L Alkaline Phosphatase 79 (40-150) U/L Total Protein 7.4 (6.0-8.3) g/dL Albumin 4.2 (3.3-5.0) g/dL Calcium panel 08/10/23 08/10/23 08/11/23 Range/Units 18:15 18:15 06:15 Calcium 8.9 8.7 (8.4-10.6) mg/dL Phosphorus 3.3 (2.5-4.5) mg/dL Albumin 4.3 Cancelled 4.2 (3.3-5.0) g/dL Pituitary panel 08/10/23 08/11/23 Range/Units 18:15 06:15 Sodium 137 137 (135-149) mmol/L Potassium 4.0 4.0 (3.6-5.1) mmol/L Chloride 103 105 (96-114) mmol/L Carbon Dioxide 22 25 (20-32) mmol/L BUN 8 8 (5-24) mg/dL Creatinine 0.8 0.8 (0.5-1.5) mg/dL Glucose 97 112 (60-115) mg/dL Calcium 8.9 8.7 (8.4-10.6) mg/dL Adrenal panel 08/10/23 08/10/23 08/10/23 Range/Units 18:15 18:15 18:15 Sodium 137 (135-149) mmol/L Potassium 4.0 (3.6-5.1) mmol/L Chloride 103 (96-114) mmol/L Carbon Dioxide 22 (20-32) mmol/L BUN 8 (5-24) mg/dL Creatinine 0.8 (0.5-1.5) mg/dL Glucose 97 (60-115) mg/dL Calcium 8.9 (8.4-10.6) mg/dL Total Bilirubin 1.0 Cancelled (0.1-1.5) mg/dL AST 30 Cancelled (12-35) U/L ALT 46 (4-50) U/L Alkaline Phosphatase (40-150) U/L Total Protein (6.0-8.3) g/dL Albumin (3.3-5.0) g/dL 08/10/23 08/10/23 08/10/23 Range/Units 18:15 18:15 18:15 Sodium (135-149) mmol/L Potassium (3.6-5.1) mmol/L Chloride (96-114) mmol/L Carbon Dioxide (20-32) mmol/L BUN (5-24) mg/dL Creatinine (0.5-1.5) mg/dL Glucose (60-115) mg/dL Calcium (8.4-10.6) mg/dL Total Bilirubin (0.1-1.5) mg/dL AST (12-35) U/L ALT Cancelled (4-50) U/L Alkaline Phosphatase 91 Cancelled (40-150) U/L Total Protein 7.3 Cancelled (6.0-8.3) g/dL Albumin 4.3 (3.3-5.0) g/dL 08/10/23 08/11/23 Range/Units 18:15 06:15 Sodium 137 (135-149) mmol/L Potassium 4.0 (3.6-5.1) mmol/L Chloride 105 (96-114) mmol/L Carbon Dioxide 25 (20-32) mmol/L BUN 8 (5-24) mg/dL Creatinine 0.8 (0.5-1.5) mg/dL Glucose 112 (60-115) mg/dL Calcium 8.7 (8.4-10.6) mg/dL Total Bilirubin 1.6 H (0.1-1.5) mg/dL AST 22 (12-35) U/L ALT 37 (4-50) U/L Alkaline Phosphatase 79 (40-150) U/L Total Protein 7.4 (6.0-8.3) g/dL Albumin Cancelled 4.2 (3.3-5.0) g/dL All other labs normal. Assessment and Plan Assessment and plan (1) Acute cholecystitis: Problem comment: - 08/10/2023: abdominal u/s demonstrates: cholelithiasis and mild thickening of the gallbladder wall, indeterminate for acute cholecystitis. - 08/10/2023 CT scan of abd and pelvis: Cholelithiasis with apparent pericholecystic inflammation, without biliary ductal dilatation, which can be seen in the setting of acute cholecystitis. While there is mild pericolonic fat stranding involving the ascending colon at the hepatic flexure, no colonic diverticula are identified to suggest acute diverticulitis, suggesting that the pericolonic inflammation could be secondary to an underlying acute cholecystitis. - admit, NPO, IVF, PRN analgesics and antiemetics Status: Acute Plan 38-year-old male with BMI 46 admitted to the hospital with fevers that are most likely due to acute cholecystitis. I discussed with the patient his laboratory and imaging findings. Patient's white count is fairly elevated. His ultrasound and CT confirm inflammation around the gallbladder concerning for acute cholecystitis. Interestingly, patient's pain has resolved. I think this patient would benefit from laparoscopic cholecystectomy. The procedure was discussed in detail. The risks associated procedure including infection, bleeding, injury to intra-abdominal organs, injury to his colon, and injury to the common bile duct were all discussed with the patient. Patient is anxious about the procedure and was asking if he could delay the procedure for a week so he can settle his personal and work responsibilities. I did not recommend delaying the surgery. I would be concerned about this patient developing septic picture and converting to atrial fibrillation. I also asked our anesthesia staff to review his chart and see the patient to make sure that he is appropriate for intubation at this hospital.
[2023-08-11] MEDS: LACTATED RINGERS 1000 ML 1,000 ML 125 ML IV ×2 (09:59→18:27)
[2023-08-11] MEDS: dilTIAZem 120 MG CAP.ER.24H PO (10:07)
[2023-08-11] MEDS: LORazepam 2 MG/ML inj IVP (10:08)
[2023-08-11] MEDS: SODIUM CHLORIDE 0.9 % (FLUSH) 10 ML SYRINGE 5 ML IVF (10:09)
--- NOTE | 2023-08-11 12:28 | NUTR.NU ---
RDn with MD consult for gallstones and obesity. Patient with acute cholecystitis, plan for surgery today. Patient not appropriate to visit at this time. RDN will attempt to visit at later date.
--- NOTE | 2023-08-11 12:58 | P.GSOP_ITS ---
Operative Note Pre-op diagnosis: 1. Acute on chronic cholecystitis. Post-op diagnosis: Same Type of Procedure: 1. Laparoscopic cholecystectomy. Indications: 38-year-old male presented to emergency room with fevers up to 101.5. Patient had an episode of abdominal pain that he described as epigastric and in his right posterior shoulder that was severe on Wednesday and Wednesday. Patient had rec urrent episodes of similar pain for the past several years. However, he has never had a fever. In the emergency room he was found to have an elevated WBC of 22. A gallbladder ultrasound was obtained that showed a dilated gallbladder with thickened gallbladder wall up to 5 mm. The common bile duct was 5 mm. Patient then had an abdominal CT scan that showed pericholecystic inflammation, cholelithiasis, and distended gallbladder. There was no evidence of dilated small or large intestine. On clinical exam patient had no tenderness to palpation in epigastrium and right upper quadrant. Patient had negative Garcia sign. Given patient's clinical history and his recent fevers despite of resolution of his current painful episode, I recommended to proceed with laparoscopic cholecystectomy. The procedure was discussed in detail. The risks associated procedure including infection, bleeding, injury to intra-abdominal organs, and injury to the common bile duct were all discussed with the patient, and he agreed to proceed. Procedure Description: After discussing the risks and benefits of the procedure, the patient signed informed consent.? The operative site was marked and the patient was brought to the operating room and placed on the operating table in supine position.? Care was taken to pad the patient's pressure points.?? The patient was then intubated by anesthesia.?? The operative site was then prepped and draped in the usual sterile fashion.? A time-out was then performed. A 5-mm laparoscopy port was placed in the left upper quadrant guided by a 5-mm laparoscope placed into a translucent trochar.~ Passage through the layers of the abdominal wall was visualized with the laparoscope.~ A pneumoperitoneum was established. A 0-degree 5-mm laparoscope was advanced into the abdomen. The abdomen was briefly surveyed, and no adhesions were noted. A 10-mm port were placed supraumbilically and two more 5 mm ports were placed on the right under direct visualization by laparoscope. The camera was then changed to 10 mm 30- degree scope and placed into the abdomen through the 10 mm port. The left upper quadrant port entrance was examined and no injury to intra-abdominal organs was identified. Omentum was retracted away from the gallbladder and the liver. The omentum and transverse colon was densely adherent to the gallbladder but those adhesions were lysed with a suction tip. I was not able to initially grasp the gallbladder. The gallbladder was decompressed with 60 mL syringe and laparoscopic needle. 60 mL of thin lightly bilious fluid was suctioned and sent to microbiology for culture. The gallbladder was then grasped and retracted cephalad. Peritoneum overlying the infundibulum was then divided with hook cautery. The infundibulum was grasped and retracted laterally, exposing the peritoneum overlying the triangle of Calot. Severe inflammation and friability was noted in the triangle of Calot. As the tissues around the cystic duct and cystic artery were dissected, inflammatory rind and smaller veins were clipped with 5 mm clips to avoid bleeding. The cystic artery was then identified just medial to the cystic duct. This was fairly short. The artery was dissected circumferentially. It was clipped with a single clip on the patient's side and another clip on the specimen side and divided with scissors. The cystic duct were clearly going into the gallbladder this was dissected circumferentially staying close to the gallbladder infundibulum. The cystic duct was then doubly ligated with surgical clips on the patient's side and singly clipped on the gallbladder side and divided. The clips on the cystic duct stump barely went across the cystic duct. I elected to place 0-0 PDS endoloop just proximal to the cystic duct stump clips. The gallbladder was dissected from the liver bed in retrograde fashion using hookcautery. This dissection was difficult given the thickened inflammation and the intrahepatic nature of the gallbladder. Multiple openings were made in the gallbladder during the this dissection and sludge and bile spilled from the gallbladder. Stones that spilled from the gallbladder were collected and removed. The gallbladder was placed into an Endo-Catch bag and removed through the supraumbilical incision. Surgical site was examined for bleeding. No bleeding was seen in the surgical field. A 15 [place] round Dar[place] drain was then placed into the subhepatic space through a 5 mm right inferior port. This port was then removed. The drain was secured in place with nylon suture. The fascia of supraumbilical incision was then closed with 2 interrupted 0-0 vicryl stitches using Gilbert Samantha needle under direct visualization. Pneumoperitoneum was completely reduced after viewing removal of the trocars under direct vision. The skin was then closed with 4-0 monocryl and steristrips were applied. Instrument, sponge, and needle counts were correct at closure and at the conclusion of the case. The patient was transferred to PACU in stable condition. Findings: Severe inflammation surrounding the gallbladder with transverse colon fat thickening walling off the gallbladder. Anesthesia: GETA Surgeon: Valeriano Mendes MD Estimated blood loss (mL): 15 Specimen: Gallbladder Additional Specimen Information: Biliary fluid for culture. Condition: stable Disposition: PACU Date of procedure: 08/11/23
--- NOTE | 2023-08-11 13:00 | W.ANESCHARGE ---
Anesthesia Charges Start Date/Time Anesthesia Start Date: 08/11/23 Anesthesia Start Time: 13:06 Stop Date/Time Anesthesia Stop Date: 08/11/23 Anesthesia Stop Time: 15:53 Summary Emergency: MDA
[2023-08-11] MEDS: CEFAZOLIN 3 GM in 0.9 % SODIUM CHLORIDE Mini-bag 100 ML IVPB (13:20)
--- NOTE | 2023-08-11 16:27 | W.ANESCHARGE ---
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
--- NOTE | 2023-08-11 18:38 | PC.NURSE ---
Patient had lap ezequiel performed today back to floor at 1630. A&O x3 but drowsy post-op. Tolerating PO ice chips, Jello & ice cream. Diet advanced to regular diet. Denies nausea. Rates pain 4/10 in right lower quadrant describing it as sore, tender. Pain increases with coughing intermittently, education given on splinting with a pillow. VSS and afebrile. HR has been regular no evidence of A. fib. Parents are at bedside and attentative to patient. No PRN pain meds given since back to floor. Lap incision sites x3 clean, dry intact secured with steri strips. RUQ BRAN drain covered with split gauze. Total output: 20 mL serosanguinous drainage. Patient hopeful on discharging home tomorrow, 08/12. TELE reads SR and continuous pulse ox ordered post-op with h/o MICHELLE no CPAP.
[2023-08-11] MEDS: OXYCODONE 5 MG TABLET PO (23:46)
[2023-08-12 03:00] VITALS: BP 119/78; PULSE 77; RESP 18; TEMP 36.8; O2SAT 98
[2023-08-12] MEDS: PIPERACILLIN/TAZOBACTAM 3.375 GM in 0.9 % SODIUM CHLORIDE Mini-bag 100 ML IVPB (05:31)
--- NOTE | 2023-08-12 06:51 | PC.NURSE ---
End of shift [id number]: A&O, pleasant and cooperative. VSS. Lap sites c/d/i. Reporting a 3-8/10 pain. See eMAR for intervention. Ambulating in room. Voiding adequate amounts. BS active. Using IS at bedside. Pt declined daily wt until up for the day. up at arnel.
--- NOTE | 2023-08-12 07:02 | PM.DS1 ---
DS: Providers Provider Date Seen: 08/12/23 Date of admission: 08/10/23 21:51 Primary care physician: Rafal Conde MD Admitting Clinician: Ricky Ramesh MD Consults: 08/10/23 22:50 Consult to Nutrition [CONS] Routine Comment: Reason for consult:: Miscellaneous Comment: gallstones; obesity with BMI 46 08/10/23 22:52 Consult to Physician [CONS] Routine Comment: Consulting Provider: Valeriano Mendes Has provider been notified: Yes Attending Physician on discharge: Ricky Ramesh MD DS: Diagnosis Discharge Diagnosis (1) Acute cholecystitis: Status: Acute DS: Summary Hospital Course Hospital Course: Patient presented to emergency room with fevers and upper abdominal pain. He was found to have acute cholecystitis. Patient underwent laparoscopic cholecystectomy on 08/11/2023. Patient had a drain placed into the subhepatic fossa. The drain was removed on the day of discharge. Patient did well postoperatively. Patient was discharged home on antibiotics. Time Spent with Patient Time attestation: Total time spent providing and/or coordinating discharge services: Exam Narrative: Exam Narrative: Abdomen is soft, nondistended, surgical incisions are covered with clean Steri-Strips. BRAN drain with serosanguineous fluid. The BRAN drain was removed today and the drain site was covered with gauze and tape. Const: Vital Signs, click to edit/add: Vital Signs - 24 hr 08/11/23 08:45 08/11/23 08:45 08/11/23 11:00 Temperature 98.2 F 98.5 F Pulse Rate Pulse Rate [Pulse Oximeter] 76 81 Respiratory Rate 16 16 Blood Pressure Blood Pressure [Ri ght Arm] 127/83 127/88 Pulse Oximetry 97 97 95 Oxygen Delivery Me thod Room Air Room Air Room Air Oxygen Flow Rate 08/11/23 15:00 08/11/23 15:48 08/11/23 15:51 Temperature 99.3 F Pulse Rate 79 79 Pulse Rate [Pulse Oximeter] Respiratory Rate 14 16 16 Blood Pressure 124/84 123/81 Blood Pressure [Ri ght Arm] Pulse Oximetry 93 96 97 Oxygen Delivery Me thod Room Air OxyMask OxyMask Oxygen Flow Rate 6 6 08/11/23 15:56 08/11/23 16:01 08/11/23 16:06 Temperature Pulse Rate 79 80 82 Pulse Rate [Pulse Oximeter] Respiratory Rate 18 16 18 Blood Pressure 124/80 130/87 134/92 H Blood Pressure [Ri ght Arm] Pulse Oximetry 98 97 97 Oxygen Delivery Me thod OxyMask OxyMask OxyMask Oxygen Flow Rate 4 4 4 08/11/23 16:10 08/11/23 16:15 08/11/23 16:30 Temperature 98.5 F Pulse Rate 80 82 Pulse Rate [Pulse Oximeter] 80 Respiratory Rate 16 16 14 Blood Pressure 137/90 H 135/90 H Blood Pressure [Ri ght Arm] 142/83 H Pulse Oximetry 98 98 93 Oxygen Delivery Me thod OxyMask OxyMask Room Air Oxygen Flow Rate 6 4 08/11/23 16:44 08/11/23 16:45 08/11/23 17:00 Temperature 98.5 F 98.5 F Pulse Rate 80 Pulse Rate [Pulse Oximeter] 79 77 Respiratory Rate 14 14 16 Blood Pressure Blood Pressure [Ri ght Arm] 142/83 H 138/92 H 146/92 H Pulse Oximetry 90 93 Oxygen Delivery Me thod Room Air Room Air Room Air Oxygen Flow Rate 08/11/23 17:15 08/11/23 17:30 08/11/23 18:00 Temperature 98.5 F Pulse Rate 77 Pulse Rate [Pulse Oximeter] 77 80 Respiratory Rate 16 16 Blood Pressure Blood Pressure [Ri ght Arm] 142/96 H 145/87 H Pulse Oximetry 92 93 Oxygen Delivery Me thod Room Air Room Air Oxygen Flow Rate 08/11/23 18:00 08/11/23 18:30 08/11/23 19:00 Temperature 98.7 F Pulse Rate Pulse Rate [Pulse Oximeter] 84 90 85 Respiratory Rate 16 16 16 Blood Pressure Blood Pressure [Ri ght Arm] 137/90 H 142/97 H 151/96 H Pulse Oximetry 94 93 94 Oxygen Delivery Me thod Room Air Room Air Room Air Oxygen Flow Rate 08/11/23 20:00 08/11/23 21:00 08/11/23 22:01 Temperature 98.1 F 98.5 F Pulse Rate Pulse Rate [Pulse Oximeter] 78 83 81 Respiratory Rate 16 16 16 Blood Pressure Blood Pressure [Ri ght Arm] 137/92 H 141/92 H 138/88 Pulse Oximetry 97 97 95 Oxygen Delivery Me thod Room Air Room Air Room Air Oxygen Flow Rate 08/11/23 22:41 08/11/23 23:00 08/11/23 23:00 Temperature Pulse Rate 76 Pulse Rate [Pulse Oximeter] 76 Respiratory Rate 18 18 Blood Pressure Blood Pressure [Ri t Arm] 140/93 H Pulse Oximetry 95 95 Oxygen Delivery Me thod Room Air Room Air Oxygen Flow Rate 08/12/23 03:00 Temperature 98.2 F Pulse Rate Pulse Rate [Pulse Oximeter] 77 Respiratory Rate 18 Blood Pressure Blood Pressure [facility]] 119/78 Pulse Oximetry 98 Oxygen Delivery Me thod Room Air Oxygen Flow Rate DS: Data Data Completed and Pending Labs on day of discharge: Labs from last 24 hours 08/11/23 06:15 Plt Count 219 Diff Slide Review Acceptable Review Sodium 137 Potassium 4.0 Chloride 105 Carbon Dioxide 25 Anion Gap 7 BUN 8 Creatinine 0.8 Estimated Creat Clear 141.49 Estimated GFR 116 Glucose 112 Calcium 8.7 Phosphorus 3.3 Magnesium 2.4 Total Bilirubin 1.6 H Direct Bilirubin 0.2 AST 22 ALT 37 Alkaline Phosphatase 79 Troponin I < 0.01 L C-Reactive Protein 19.7 H Total Protein 7.4 Albumin 4.2 Lipase 21 L Preliminary micro results at discharge 08/11/23 13:51 Aerobic Culture - Preliminary Gallbladder Fluid Culture in Progress Anaerobic Culture - Preliminary Culture in Progress 08/10/23 18:15 Blood Culture - Preliminary Blood NO GROWTH AFTER 24 HOURS Discharge Plan Discharge Disposition: Home, Self-Care Discharging Surgeon: Valeriano Mendes Follow-Up Appointment: 2 weeks Prescriptions: New hydrocodone-acetaminophen 5-325 mg tablet 1 tab PO Q6H PRN (Reason: pain) Qty: 25 0RF amoxicillin-pot clavulanate 875-125 mg tablet 1 tab PO BID Qty: 10 0RF Continued aspirin [Adult Aspirin Regimen] 81 mg tablet,delayed release (DR/EC) 81 mg PO QDAY diltiazem HCl [Cardizem CD] 120 mg capsule,extended release 24hr 120 mg PO DAILY Qty: 30 2RF metoprolol succinate 50 mg tablet extended release 24 hr 75 mg PO QDAY Qty: 135 1RF Discontinued hydroxyzine HCl 50 mg tablet 50 mg PO TID PRNQty: 15 0RF Activity Level: No strenuous activity Activity Detail: No lifting more than 15-20 lbs for a total of 4-6 weeks post op Discharge Diet: Regular Patient Instructions: Hydrocodone/Acetaminophen (By mouth), Amoxicillin/Clavulanate Potassium (By mouth), General Anesthesia (DC), Laparoscopic Cholecystectomy (DC), Post-Operative Instructions: Laparoscopic Cholecystectomy Additional Instructions: Take laxatives such as Miralax or Senna daily to have you bowel movements daily for the first week after surgery Forms: [facility] Info Instructions Follow-up: Valeriano Mendes MD [Staff Physician] - 08/25/23 9:00 am ([facility] for follow-up.) Discharge Orders: Discharge Order (Routine); Ordered 08/12/23 Ordered By: Valeriano Mendes
[2023-08-12 07:30] VITALS: PULSE 75; RESP 16; O2SAT 97
[2023-08-12 08:45] VITALS: BP 145/95; PULSE 88; RESP 16; TEMP 36.9; O2SAT 97
[2023-08-12] MEDS: dilTIAZem 120 MG CAP.ER.24H PO (08:56)
[2023-08-12] MEDS: METOPROLOL SUCCINATE (XL) 50 MG TAB 75 MG PO (08:56)
[2023-08-12 09:12] VITALS: BMI 44.4
--- NOTE | 2023-08-12 11:19 | PC.NURSE ---
Discharge note: Pt alert and oriented, pleasant and cooperative. Rates pain 1/10 to abdomen, declines need for PRN. Pt ind in cares. Surgeon removed BRAN drain this AM, dressing to site CDI. Steri strips intact to x3 lap sites, scant old drainage noted. Areas free of redness, warmth and swelling. Vitals stable, on RA. Up ind in room. Voiding, pt reports passing flatus. Last BM yesterday before surgery. IV removed prior to d/c, catheter intact. D/c instructions reviewed with pt, questions answered. Pt d/c home at 1109 via private car, given WC ride to car for comfort. Pt fully alert and oriented and last narcotic was admin before midnight last night. Pt d/c without issue.
== END 2023-08-12 11:09 | disposition home or self-care (01) ==
LOC: ED 20:51 → MEDSURG 08-11 08:35 → ED 08-13 11:46 → SS 08-13 11:47 → MEDSURG 08-13 11:48
PROVIDERS: Internal Medicine; Emergency Provider Emergency Medicine; PCP Family Medicine; Visit Provider Surgery
PROC: 0FT44ZZ Resection of Gallbladder, Percutaneous Endoscopic Approach (ICD-10-PCS; CPT 47562; principal; 2023-08-11 12:30)
DX: K80.12 Calculus of gallbladder with acute and chronic cholecystitis without obstruction (principal); I48.0 Paroxysmal atrial fibrillation; I10 Essential (primary) hypertension; E66.9 Obesity, unspecified; Z68.42 Body mass index [BMI] 45.0-49.9, adult
CPT/HCPCS: 47562; 00790; 36415; 74177; 76705; 80048; 80076; 82803; 83605; 83690; 83735; 84100; 84484; 85025; 86140; 87040; 87070; 87075; 87086; 87205; 87631; 88304; 93005; 99140; 99284; 99285; G0378; A9270; J0330; J0690; J1100; J1170; J1200; J2060; J2250; J2405; J2543; J2704; J3010; J3490; J7030; J7120; Q9967

== ENCOUNTER 2023-09-16 19:46 | Outpatient (CLI) | payer OTHER, SELFPAY ==
--- NOTE | 2023-09-28 09:01 | W.PM.SLEEP ---
Sleep Study Details Details Interpreting Provider: Clyde Date of Sleep Study: 09/16/23 Sleep Study Details: STUDY TYPE:? Home unattended ? BMI:? 46.1 ORDERING PROVIDER:? Clyde INDICATION:? Concerns about sleep apnea ? SLEEP SUMMARY:? 417 minutes monitored RESPIRATORY SUMMARY:? AHI 8, supine 34.2, right lateral 4.4 Low oxygen 87 1.1% of study oxygen below 90% Snoring 0.6% PERIODIC LIMB MOVEMENTS OF SLEEP:? Not recorded during home study CARDIAC:? Range 45-93, mean 58.5 IMPRESSION:? Mild obstructive sleep apnea overall. Significant supine position dependency RECOMMENDATION: Treatment options include positional therapy with avoidance of supine sleep, AutoSet CPAP, dental appliance and weight loss.
== END 2023-09-16 19:47 | disposition home or self-care (01) ==
LOC: SLEEP 19:47
PROVIDERS: PCP Family Medicine; Visit Provider Otolaryngology
DX: G47.33 Obstructive sleep apnea (adult) (pediatric) (principal)
CPT/HCPCS: 95806

== ENCOUNTER 2024-01-07 18:35 | Emergency (ER) | payer OTHER, SELFPAY ==
[2024-01-07 18:41] VITALS: BP 145/82; PULSE 70; RESP 16; TEMP 36.4; O2SAT 95; BMI 46.8
[2024-01-07 19:30] LABS: Basophils Percent Auto 0.2 % (0.0-3.0); Eosinophils Percent Auto 0.2 % (0.0-7.0); Hematocrit 46.1 % (37.0-53.0); Hemoglobin* 15.5 gm/dL (13.5-17.5); Immature Granulocytes Pct Auto 0.2 %; Lymphocytes Percent Auto 16.9 % (20-44); Mean Corpuscular HGB Conc 34 gm/dL (32-36); Mean Corpuscular Hemoglobin 30 pg (26-34); Mean Corpuscular Volume 90 fL (80-100); Monocytes Percent Auto 7.9 % (0.0-11.0); Neutrophils Percent Auto 74.6 % (42.0-72.0); Platelet Count* 249 K/uL (140-440); RDW Coefficient of Variation % 12.6 % (11.5-15.5); Red Blood Count 5.14 m/uL (4.30-5.90); White Blood Count* 11.22 K/uL (4.50-11.00)
[2024-01-07 19:32] LABS: Slide Review Reflex No
--- NOTE | 2024-01-07 19:32 | CT_ITS ---
Patient: ZACH RAMSEY Facility:?[facility] Patient ID:?[id number] Site Patient ID:?[id number]. Site :?[id number] Study:?CT-Abdomen/Pelvis 3PHASE KIDNEY-01/07/2024 8:06:17 PM Ordering Physician:JACQUE Final Report: INDICATION: Hematuria, pain during urination. TECHNIQUE: CT abdomen and pelvis acquired with 100 mL Isovue 370 contrast. COMPARISON: None. FINDINGS: Lower chest: No focal consolidation. Large right Bochdalek hernia. Evaluation of solid organs is limited secondary to lack of portal venous phase, only unenhanced and urographic phases were obtained. Therefore, the solid organ parenchyma is essentially unenhanced on all provided images. Liver: Too small to characterize hypodense hepatic lesion in the right lobe, likely benign in the absence of a known malignancy. Diffuse hepatic steatosis. Gallbladder and bile ducts: Post cholecystectomy. Pancreas: Unremarkable. Spleen: Unremarkable. Adrenal glands: Unremarkable. Kidneys: Kidneys enhance symmetrically, without hydronephrosis. No suspicious filling defects identified within the contrast opacified portions of the bilateral ureters. No renal calculi bilaterally. Retroperitoneum: No lymphadenopathy. Bowel and mesentery: Bowel is not obstructed. No significant ascites, no pneumoperitoneum. Normal appendix. Bladder: No suspicious mass. Mild circumferential bladder wall thickening. Reproductive organs: No prostatomegaly. Pelvic lymph nodes: No lymphadenopathy. Vessels: Unremarkable. Abdominal wall: No acute abdominal wall abnormality. Bones: Multilevel degenerative changes of the spine. No suspicious/aggressive focal osseous lesion. IMPRESSION: 1. Mild circumferential urinary bladder wall thickening, concerning for cystitis. Recommend correlation with urinalysis. 2. Kidneys enhance symmetrically, without hydronephrosis. No suspicious filling defects identified within the contrast opacified portions of the bilateral ureters. No renal calculi bilaterally. 3. Diffuse hepatic steatosis. Please note that all CT scans at this facility use dose modulation, iterative reconstruction, and/or weight-based dosing when appropriate to reduce radiation dose to as low as reasonably achievable. Dictated by Maverick Brown MD @ 01/07/2024 8:54:25 PM Signed by:?Maverick Brown MD @01/07/2024 8:54:25 PM (Electronic Signature)
[2024-01-07 19:41] LABS: Chloride* 103 mmol/L (96-114); Potassium* 4.1 mmol/L (3.6-5.1); Sodium* 137 mmol/L (135-149)
[2024-01-07 19:44] LABS: Creatinine* 0.8 mg/dL (0.5-1.5); Est. Creatinine Clearance* 141.49; Estimated Glomerular Filt Rate 116 ml/min
[2024-01-07 19:45] LABS: Anion Gap 8 mEq/L (7-15); Blood Urea Nitrogen* 12 mg/dL (5-24); Carbon Dioxide* 26 mmol/L (20-32); Glucose* 105 mg/dL (60-115)
[2024-01-07 19:48] LABS: C Reactive Protein* < 0.5 mg/dL (0.5-1.0)
--- NOTE | 2024-01-07 19:51 | ED_ITS ---
HPI - General Adult General Chief complaint: Urogenital Problems, Male Stated complaint: Bleeding from urethra after urinating Time Seen by Provider: 01/07/24 18:36 Source: patient Mode of arrival: ambulatory Limitations: no limitations History of Present Illness HPI narrative: 38-year-old male coming in today complaining of bleeding from his penis. Patient states he woke up this morning everything was normal. Around 11:30 a.m. he use the bathroom again and after he was almost done urinating he felt a sharp 5/10 pain that lasted about 10 seconds and then he had seble blood come out of his urethra. He states that it was dripping blood for approximately 10 minutes. He got the bleeding to stop went about his day. At around 1:30 p.m. he had to go to the bathroom again in the same thing happened. He then presented to the urgent care. He states that he gave, was he thought was a clear urine sample at that time. But then shortly thereafter the bleeding started again. He states that once the bleeding stops he can flex his urethra and expel a blood clot. He denies any fevers or chills. No nausea or vomiting. No changes in his appetite. No weight loss. No night sweats. He denies any rectal pain. He denies any changes in his urinary habits aside from today. He denies any flank or abdominal pain. He denies any abnormalities of the penis such as a tears or rash. UA done in the urgent care shows 3+ blood and 5-10 rbc's, otherwise unremarkable. Patient was sent to the ER for further management. Related Data Home Medications Medication Instructions Recorded Confirmed aspirin 81 mg tablet,delayed 81 mg PO QDAY 05/10/23 01/07/24 release (Adult Aspirin Regimen) flecainide 100 mg tablet 100 mg PO Q12H 01/07/24 01/07/24 Previous Rx's Medication Instructions Recorded metoprolol succinate 50 mg 75 mg (1.5 x 50 mg) PO QDAY #135 05/10/23 tablet,extended release 24 hr tabs sulfamethoxazole 800 1 tab PO BID 7 days #14 tabs 01/07/24 mg-trimethoprim 160 mg tablet (Bactrim DS) Allergies Allergy/AdvReac Type Severity Reaction Status Date / Time No Known Drug Allergies Allergy Verified 01/07/24 16:32 Review of Systems Status of ROS: Reports: 10 or more systems reviewed and unremarkable except as noted in History and below PFSH [facility] Medical History Insomnia ?G47.00 - Insomnia, unspecified (ICD-10) Paroxysmal atrial fibrillation with rapid ventricular response ?I48.0 - Paroxysmal atrial fibrillation (ICD-10) Family history of thyroid disease ?Z83.49 - Family history of other endocrine, nutritional and metabolic diseases (ICD-10) Family history of ASCVD ?Z82.49 - Family history of ischemic heart disease and other diseases of the circulatory system (ICD-10) Obesity ?E66.9 - Obesity, unspecified (ICD-10) Palpitation ?R00.2 - Palpitations (ICD-10) Hypertension ?I10 - Essential (primary) hypertension (ICD-10) Surgical History S/P laparoscopic cholecystectomy ?Z90.49 - Acquired absence of other specified parts of digestive tract (ICD- 10) Social History What is your current living situation?: I presently have a place to live Problems where you live: no known problems Problems where you live details: n/a In the past 12 months, utilities in danger of being shut off: no In past 12 months, lack of transportation kept you from medical appts, meetings, work, or getting things needed for daily living: no In the past 12 mos, have been you worried that your food would run out before you had money to buy more?: never true In the past 12 mos, the food you bought just didn't last and you didn't have money to buy more?: never true Highest level of school completed/degree received: some college, no degree Smoking Status: Current some day smoker What tobacco products do you use: cigars How often do you have a drink containing alcohol: 2-4 times a month AUDIT-C Alcohol total score: 2 Non-prescribed substance use: other Non-prescribed substance use details: THC gummies Caffeine: Yes How often does anyone, including family, friends and others, physically hurt you : never How often does anyone, including family, friends and others, insult or talk down to you: never How often does anyone, including family, friends and others, threaten you with harm: never How often does anyone, including family, friends and others, scream or curse at you: never service: No Exam Narrative: Exam Narrative: Well-nourished well-developed patient in no acute distress. Alert and oriented. Answers questions appropriately. Mood and affect are appropriate. Thoughts are goal oriented and rational. No tangential or magical thinking noted. Patient speaks in full sentences without needing to catch their breath. HEENT: Normocephalic atraumatic. Pupils are equally round reactive to light. Extraocular muscles are intact. Conjunctivae are moist without any icterus noted. Moist mucous membranes. Cardiovascular: Heart is regular rate and rhythm. Lungs: Clear to auscultation bilaterally. Abdomen: Soft and nontender nondistended with normal bowel sounds. Protuberant. Skin: Visualized skin is well perfused without any obvious rashes. Const: Vital Signs, click to edit/add: Vital Signs - 24 hr 01/07/24 18:41 Temperature 97.6 F Pulse Rate [Pulse Oximeter] 70 Respiratory Rate 16 Blood Pressure [Ri ght Upper Arm] 145/82 H Pulse Oximetry 95 Oxygen Delivery Me thod Room Air Course Course ED Course: CBC, chemistries, CRP unremarkable. Consult with Dr. Hall, urology, who recommended a CT urogram in outpatient fo llow-up. CT urogram showing mild circumferential bladder wall thickening concerning for cystitis. Vital Signs Vital signs: Initial Vital Signs Temperature 97.6 F 01/07/24 18:41 Temperature Source Temporal Artery Scan 01/07/24 18:41 Pulse Rate 70 01/07/24 18:41 Respiratory Rate 16 01/07/24 18:41 Blood Pressure 145/82 H 01/07/24 18:41 Blood Pressure Mean 103 01/07/24 18:41 Blood Pressure Position Sitting 01/07/24 18:41 Pulse Oximetry 95 01/07/24 18:41 Oxygen Delivery Method Room Air 01/07/24 18:41 Vital Signs Temperature 97.6 F 01/07/24 18:41 Pulse Rate 70 01/07/24 18:41 Respiratory Rate 16 01/07/24 18:41 Blood Pressure 145/82 H 01/07/24 18:41 Pulse Oximetry 95 01/07/24 18:41 Oxygen Delivery Method Room Air 01/07/24 18:41 Temperature 97.6 F 01/07/24 18:41 Pulse Rate 70 01/07/24 18:41 Respiratory Rate 16 01/07/24 18:41 Blood Pressure 145/82 H 01/07/24 18:41 Pulse Oximetry 95 01/07/24 18:41 Oxygen Delivery Method Room Air 01/07/24 18:41 Medical Decision Making MDM Narrative Medical decision making narrative: 38-year-old male with hematuria clear etiology at this time. Given imaging, we will treat with antibiotics. Urology team will reach out to the patient 1st thing on Wednesday to set up a follow-up appointment. Lab Data Lab results reviewed: Yes I reviewed the patient's lab results Labs: Lab Results 01/07/24 Range/Units 19:18 WBC 11.22 H (4.50-11.00) K/uL RBC 5.14 (4.30-5.90) m/uL Hgb 15.5 (13.5-17.5) gm/dL Hct 46.1 (37.0-53.0) % MCV 90 (80-100) fL MCH 30 (26-34) pg MCHC 34 (32-36) gm/dL RDW Coeff of [place] 12.6 (11.5-15.5) % Plt Count 249 (140-440) K/uL Neut % (Auto) 74.6 H (42.0-72.0) % Lymph % (Auto) 16.9 L (20-44) % [place] % (Auto) 7.9 (0.0-11.0) % Eos % (Auto) 0.2 (0.0-7.0) % Baso % (Auto) 0.2 (0.0-3.0) % Neut # (Auto) 8.40 H (1.7-7.0) K/uL Lymph # (Auto) 1.90 (0.90-2.90) K/uL [place] # (Auto) 0.90 (0.00-0.90) K/UL Eos # (Auto) 0.00 (0.00-0.50) K/uL Baso # (Auto) 0.00 (0.00-0.30) K/uL Abs Immat Gran (auto) 0.00 (0.00-0.30) K/uL Imm/Tot Granulo (auto) 0.2 % Sodium 137 (135-149) mmol/L Potassium 4.1 (3.6-5.1) mmol/L Chloride 103 (96-114) mmol/L Carbon Dioxide 26 (20-32) mmol/L Anion Gap 8 (7-15) mEq/L BUN 12 (5-24) mg/dL Creatinine 0.8 (0.5-1.5) mg/dL Estimated Creat Clear 141.49 Estimated GFR 116 ml/min Glucose 105 (60-115) mg/dL Calcium 9.0 (8.4-10.6) mg/dL C-Reactive Protein < 0.5 L (0.5-1.0) mg/dL Imaging Data CT urogram: Attestation: I have reviewed the pertinent imaging results. Radiologist's impression: CT abdomen and pelvis acquired with 100 mL Isovue 370 contrast. COMPARISON: None. FINDINGS: Lower chest: No focal consolidation. Large right Bochdalek hernia. Evaluation of solid organs is limited secondary to lack of portal venous phase, only unenhanced and urographic phases were obtained. Therefore, the solid organ parenchyma is essentially unenhanced on all provided images. Liver: Too small to characterize hypodense hepatic lesion in the right lobe, likely benign in the absence of a known malignancy. Diffuse hepatic steatosis. Gallbladder and bile ducts: Post cholecystectomy. Pancreas: Unremarkable. Spleen: Unremarkable. Adrenal glands: Unremarkable. Kidneys: Kidneys enhance symmetrically, without hydronephrosis. No suspicious filling defects identified within the contrast opacified portions of the bilateral ureters. No renal calculi bilaterally. Retroperitoneum: No lymphadenopathy. Bowel and mesentery: Bowel is not obstructed. No significant ascites, no pneumoperitoneum. Normal appendix. Bladder: No suspicious mass. Mild circumferential bladder wall thickening. Reproductive organs: No prostatomegaly. Pelvic lymph nodes: No lymphadenopathy. Vessels: Unremarkable. Abdominal wall: No acute abdominal wall abnormality. Bones: Multilevel degenerative changes of the spine. No suspicious/aggressive focal osseous lesion. IMPRESSION: 1. Mild circumferential urinary bladder wall thickening, concerning for cystitis. Recommend correlation with urinalysis. 2. Kidneys enhance symmetrically, without hydronephrosis. No suspicious filling defects identified within the contrast opacified portions of the bilateral ureters. No renal calculi bilaterally. 3. Diffuse hepatic steatosis. Discharge Plan Discharge Clinical Impression: Hematuria Patient Disposition: Home, Self-Care Condition: Stable Additional Instructions: Take all antibiotics as prescribed. A produce team member from Dr. Hall's office, urology at [facility], will contact you on Wednesday morning to schedule an outpatient follow-up. Prescriptions: New sulfamethoxazole-trimethoprim [Bactrim DS] 800-160 mg tablet 1 tab PO BID 7 Days Qty: 14 0RF No Action flecainide 100 mg tablet 100 mg PO Q12H aspirin [Adult Aspirin Regimen] 81 mg tablet,delayed release (DR/EC) 81 mg PO QDAY metoprolol succinate 50 mg tablet extended release 24 hr 75 mg PO QDAY Qty: 135 1RF Follow Up/Referrals: Rafal Conde MD [Primary Care Provider] - Stand Alone Forms: [facility] Info Instructions
== END 2024-01-07 21:22 | disposition home or self-care (01) ==
PROVIDERS: Emergency Provider Family Medicine; PCP Family Medicine
DX: R31.9 Hematuria, unspecified (principal)
CPT/HCPCS: 36415; 74178; 80048; 81003; 85025; 86140; 99284; Q9967